=== PATIENT | female | born 1950 | race Caucasian/White ===

== ENCOUNTER → 2016-11-25 | Outpatient (CLI) | payer OTHER ==
[~2016-11-25] MED LIST: LOSA50TA6 PO; VENL150C56 PO
== END ==
LOC: C.PAPS 15:16
PROVIDERS: ATTEND Obstetrics & Gynecology
DX: Z12.4 Encounter for screening for malignant neoplasm of cervix (principal)

== ENCOUNTER → 2016-12-29 | Outpatient (CLI) | payer OTHER, BC ==
[2016-12-29 16:30] LABS: BASO % 0.2 %; BASO ABS # 0.02 K/uL (0-0.2); COMPLETE YES; EOS % 3.6 %; IG% 0.3 %; LYMPH % 26.5 %; LYMPH ABS # 2.51 K/uL (1.2-3.4); MEAN CELL VOLUME 92.2 fL (80-100); MEAN CORPUSCULAR HEMOGLOBIN 32.6 pg (25-34); MEAN CORPUSCULAR HGB CONC 35.4 g/dl (32-36); MEAN PLATELET VOLUME 9.4 fL (7.4-10.4); MONO % 9.9 %; NEUT % 59.5 %; PLATELET COUNT 226 K/uL (130-400); RED BLOOD COUNT 4.23 M/uL (4.2-5.4); WHITE BLOOD COUNT 9.48 K/uL (4.8-10.8)
== END | disposition home or self-care (01) ==
LOC: C.LAB 16:05
PROVIDERS: ATTEND Obstetrics & Gynecology
DX: N85.2 Hypertrophy of uterus (principal); R93.8 Abnormal findings on diagnostic imaging of other specified body structures

== ENCOUNTER → 2017-01-02 | Day surgery (SDC) | payer OTHER, BC ==
--- NOTE | 2016-12-24 19:15 | HISTORY & PHYSICAL EXAMINATION ---
DATE OF ADMISSION: 01/02/2017 CHIEF COMPLAINT: Thickened endometrial stripe, enlarged uterus. HISTORY OF PRESENT ILLNESS: The patient is a 66-year-old, 3, para 2, on spontaneous AB. General health is complicated by high blood pressure and elevated cholesterol. She was seen in the office for a yearly visit and found to have an enlarged uterus. A transvaginal ultrasound was done at which time she was found to have an endometrial stripe of 10-15 mm. She is presently being scheduled for an outpatient D\T\C. PAST MEDICAL HISTORY: She has 2 children in good health. ALLERGIES: No known drug allergies. PAST SURGICAL HISTORY: No previous surgery. MEDICAL HISTORY: She is on blood pressure medications and she has high cholesterol. SOCIAL HISTORY: No smoking. No alcohol intake. FAMILY HISTORY: Mom at age 72 of ovarian cancer. Father at age 68 of myocardial infarction. One brother and one sister, in good health. REVIEW OF SYSTEMS: HEAD: No symptoms of frequent or severe headaches. EYES: No symptoms of blurred vision or double vision. EARS: No symptoms of frequent ear infections or difficulty hearing. NOSE: No symptoms of frequent nosebleeds or difficulty breathing through her nose. THROAT: No symptoms of frequent severe sore throat or difficulty swallowing. RESPIRATORY SYSTEM: No history of asthma, chest pain or shortness of breath. PHYSICAL EXAMINATION: GENERAL: Well-developed, well-nourished 66-year-old white female, alert, oriented x3 and cooperative, in no acute distress, appears stated age. EYES: Conjunctivae are pink. Sclerae white. No evidence of jaundice. EARS: Had normal reflex bilaterally. NOSE: Had normal mucosa. Septum is midline. There were no polyps. THROAT: No erythema or evidence of infection. Teeth are in good state of repair. HEAD: Normocephalic, normal distribution of hair. NECK: Supple. Trachea is midline. Thyroid is not enlarged. There is no adenopathy appreciated. Both carotids are of good intensity. CHEST: Clear to auscultation and percussion. No wheezes, rales or rhonchi are appreciated. HEART: Regular rhythm. S1 and S2 are normal. BREASTS: Normal. ABDOMEN: Soft and nontender. PELVIC: Revealed atrophic vaginitis, uterus is 9-10 weeks size. There were no adnexal masses appreciated. MUSCULOSKELETAL: Revealed no calf tenderness. IMPRESSIONS OF THIS CASE: Elevated blood pressure, elevated cholesterol and enlarged uterus with an abnormally thickened endometrial stripe. SARTHAKD
[2017-01-01 14:38] VITALS: Ht 165.1 cm; Wt 88.6 kg
[~2017-01-02] VITALS: Ht 165.1 cm; Wt 88.6 kg
[~2017-01-02] MED LIST changes: +ATROPINE SULFATE 0.1 MG/ML 5ML SYR IV PRN; +DEXAMETHASONE SOD INJ 4 MG/ML VIAL ONE; +EpHEDrine SULFATE INJ 50 MG/ML AMP IV PRN; +FENTANYL CITRATE INJ 50 MCG/1 ML 2 ML VIAL IV PRN; +FENTANYL CITRATE INJ 50 MCG/1 ML 2 ML VIAL ONE; +FLUMAZENIL 0.1 MG/1 ML 10 ML VIAL IV PRN; +GLYCOPYRROLATE INJ 0.2 MG/ML VIAL ONE; +HYDROCODONE/ACETAMOPHEN 5/325MG TAB PO PRN; +IBUPROFEN 600 MG TAB PO PRN; +KETOROLAC TROMETHAMINE 15 MG/ML VIAL IV. PRN; +LABETALOL HCL IV 5 MG/ML 20ML IV ONE; +LABETALOL HCL IV 5 MG/ML 20ML IV PRN; +LACTATED RINGER'S 1000ML 1,000 ML IV SCH; +LIDOCAINE HCL 2% 2 ML VIAL (20MG/ML) ONE; +MIDAZOLAM HCL 1 MG/ML 2ML VIAL ONE; +NALOXONE HCL 0.4 MG/1 ML VIAL/CARP IV PRN; +ONDANSETRON INJ 2 MG/ML 2 ML VIAL IV PRN; +ONDANSETRON INJ 2 MG/ML 2 ML VIAL ONE; +OXYCODONE/ACETAMINOPHEN 5-325 TAB PO PRN; +PATIENT'S ALLERGY INFO NEEDS ENTERED SCH; +PROMETHAZINE HCL INJ 12.5 MG in SODIUM CHLORIDE 0.9% 50ML 50 ML IV PRN; +PROPOFOL IV EMULSION 10 MG/ML 20 ML VIAL IV ONE; +SODIUM CHLORIDE 0.9% 1000ML 1,000 ML IV SCH
--- NOTE | 2017-01-02 08:08 | History & Physical Bridge Note ---
H&P Re-Evaluation Bridge Note: I have examined the patient, reviewed the History & Physical and in the interval since the performance of the History & Physical I have noted the following changes of clinical significance: No changes noted
--- NOTE | 2017-01-02 08:44 | [facility] Post Operative Brief Note ---
Immediate Operative Summary Operative Date Jan 02, 2017. Pre-Operative Diagnosis Thickened Endometrium Post-Operative Diagnosis same Procedure(s) Performed Dilatation And Curettage Surgeon Dr. Ramiro Saavedra Hair Preparer Surgeon(s) 0 Estimated Blood Loss 5cc Findings cervical stenosis uterus sounded to 8 cm large amount of tissue obtained Specimens A. Endometrial Curettings Complication(s) None Disposition Recovery Room / PACU
--- NOTE | 2017-01-02 08:46 | Discharge Instructions-SurgCtr ---
Discharge Instructions Date of Service Jan 02, 2017. Visit Reason for Visit: Thickened Endometrium Discharge Discharge Diagnosis / Problem: thickened endometrium Discharge Goals Goal(s): Learn about illness Activity Recommendations Activity Limitations: as noted below ACTIVITY RECOMMENDATIONS: * Avoid tampons, douching, hot tubs, pools, and intercourse until bleeding has stopped. * May shower as usual. * No strenuous activity for 24-48 hours. After 24-48 hours, you may do anything you feel like doing (driving and sports are okay). SPECIAL CARE INSTRUCTIONS: Special Diet: * Mild nausea may occur in the immediate post-operative period. * Take clear liquids such as tea, cola or bouillon until all nausea has subsided; you may then resume your normal diet. Special Care: * Light bleeding and vaginal spotting can last from a few days to 3-4 weeks. Call your doctor if bleeding becomes heavier than the heaviest part of your period. * Check your temperature twice a day for one week. If it goes above 100.4 degrees Fahrenheit (38.0 Celsius), notify your doctor. * Call your doctor's office for an appointment for 6 weeks after your surgery. FOLLOW-UP VISIT: Call your doctor's office for an appointment for 6 weeks after your surgery. Anesthesia . Post Anesthesia Instructions: If you have had General Anesthesia or IV Sedation: * Do not drive today. * Resume driving when surgeon permits. * Do not make important decisions or sign legal documents today. * Call surgeon for: 1. Temperature elevations greater than 101 degrees F. 2. Uncontrollable pain. 3. Excessive bleeding. 4. Persistent nausea and vomiting. 5. Medication intolerance (nausea, vomiting or rash). * For nausea and vomiting use only clear liquids such as: tea, soda, bouillon until nausea subsides, then gradually increase diet as tolerated. * If you have any concerns or questions, call your surgeon's office. If physician is unavailable and it is an emergency, call 911 or go to the nearest emergency room. . Diet Recommendations Home Diet: resume previous diet Procedures Procedures Performed: Dilatation And Curettage Pending Studies Studies pending at discharge: no Medical Emergencies . Who to Call and When: Medical Emergencies: If at any time you feel your situation is an emergency, please call 911 immediately. . Non-Emergent Contact Non-Emergency issues call your: Impregnating Machine Operator Call Non-Emergent contact if: temperature is above 100.5 . . "Provider Documentation" section prepared by Denny Saavedra.
--- NOTE | 2017-01-02 08:54 | OPERATIVE REPORT ---
DATE OF OPERATION: 01/02/2017 INDICATIONS FOR SURGERY: Enlarged uterus, abnormally enlarged endometrial stripe to 1-1.3 cm. 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 POSTOPERATIVE DIAGNOSIS: Same. Uterus sounded to 8 cm. Pathology pending. PROCEDURE D+C SURGEON: Dr. Saavedra. ESTIMATED BLOOD LOSS: 5 mL. ANESTHESIA: General. OPERATIVE FINDINGS AND PROCEDURE: The patient was brought to the OR table, correctly identified by armband and conversation. General anesthesia was administered. Perineum and vagina were painted with Betadine paint, draped in usual sterile fashion. A metal catheter was used to empty the bladder. Careful pelvic exam under anesthesia revealed an enlarged uterus, mid position, no adnexal masses appreciated. Weighted speculum was placed in the posterior vagina. Anterior lip of the cervix grasped with single tooth tenaculum at 12 o'clock. There was a little bit of cervical stenosis and this was managed by using a stat to open up the endocervical canal. Then the uterus was sounded to 8 cm. Cervix was dilated with graduated dilators. A small curette was placed in the uterine cavity. All 4 quadrants of the uterus were thoroughly and systematically curetted. This was productive of some abnormal appearing tissue. After thorough curettage of the endometrial cavity ovum forceps was inserted into the uterine cavity, opened and closed several times, just 1 or 2 small fragments were obtained then procedure was terminated. Instruments were removed. The patient tolerated the procedure well and left the OR in good condition. I attest to the content of the Intraoperative Record and any orders documented therein. Any exceptions are noted below. MTDD
[2017-01-02 10:13] VITALS: BP 178/99; PULSE 71; TEMP 36.7; O2SAT 97
--- NOTE | 2017-01-02 10:20 | Anesthesia Progress Nt - [facility] ---
Anesthesia Post Op Note Date & Time Jan 02, 2017 at 10:19 Vital Signs Pain Intensity: 0 Vital Signs Past 12 Hours Date Time Temp Pulse Resp B/P Pulse Ox O2 Delivery O2 Flow Rate FiO2 01/02/17 10:13 36.7 71 14 178/99 97 Room Air 01/02/17 09:40 36.7 74 14 161/94 94 Room Air 01/02/17 09:25 150/96 01/02/17 09:22 80 19 01/02/17 09:22 36.4 93 Room Air 01/02/17 09:22 81 19 91 01/02/17 09:21 79 8 01/02/17 09:21 79 8 92 01/02/17 09:21 79 8 92 01/02/17 09:21 79 8 01/02/17 09:20 151/86 01/02/17 09:20 151/86 01/02/17 09:16 77 11 93 01/02/17 09:16 77 11 01/02/17 09:16 77 11 93 01/02/17 09:16 77 11 01/02/17 09:15 141/94 01/02/17 09:15 141/94 01/02/17 09:11 81 14 94 01/02/17 09:11 81 14 01/02/17 09:11 81 14 01/02/17 09:11 81 14 94 01/02/17 09:10 152/100 01/02/17 09:10 152/100 01/02/17 09:06 82 14 92 01/02/17 09:06 82 14 01/02/17 09:06 82 14 92 01/02/17 09:06 82 14 01/02/17 09:05 148/95 01/02/17 09:05 148/95 01/02/17 09:01 84 13 97 01/02/17 09:01 84 13 01/02/17 09:01 84 13 01/02/17 09:01 84 13 97 01/02/17 09:00 148/87 01/02/17 09:00 148/87 01/02/17 08:56 102 13 99 01/02/17 08:56 102 13 99 01/02/17 08:56 102 13 01/02/17 08:56 102 13 01/02/17 08:55 171/113 01/02/17 08:55 171/113 01/02/17 08:51 104 22 98 01/02/17 08:51 104 22 01/02/17 08:51 104 22 01/02/17 08:51 104 22 98 01/02/17 08:50 180/115 01/02/17 08:50 180/115 01/02/17 08:47 165/114 01/02/17 08:47 165/114 01/02/17 08:46 102 176/109 95 01/02/17 08:46 102 01/02/17 08:46 102 176/109 95 01/02/17 08:46 36.7 98 16 165/114 98 Mask 7 01/02/17 08:46 102 01/02/17 07:37 37.4 71 18 167/100 94 Room Air Notes Mental Status: alert / awake / arousable, participated in evaluation Pt Amnestic to Procedure: Yes Nausea / Vomiting: adequately controlled Pain: adequately controlled Airway Patency, RR, SpO2: stable & adequate BP & HR: stable & adequate Hydration State: stable & adequate Anesthetic Complications: no major complications apparent
== END | disposition home or self-care (01) ==
LOC: X.SURG 07:29
PROVIDERS: ATTEND Obstetrics & Gynecology
DX: N84.0 Polyp of corpus uteri (principal); N85.2 Hypertrophy of uterus; N85.8 Other specified noninflammatory disorders of uterus; N88.2 Stricture and stenosis of cervix uteri; Z80.41 Family history of malignant neoplasm of ovary; I10 Essential (primary) hypertension; E78.5 Hyperlipidemia, unspecified

== ENCOUNTER 2024-08-27 10:35 | Inpatient (IN) ==
--- OUTSIDE RECORDS SUMMARY | 2024-08-27 10:39 | External Medical Summary | Continuity of Care Document ---
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 Phone Saba Garcia Primary Care Physician [phone] Encounter [facility] [phone] Date(s): 07/28/24 - 07/28/24 [facility] [address], [address] [place] [address] [phone] Encounter Diagnosis HTN (hypertension)(Discharge Diagnosis) - 07/28/24 Memory loss(Discharge Diagnosis) - 07/28/24 Hyperlipidemia(Discharge Diagnosis) - 07/28/24 Age-associated hearing loss(Discharge Diagnosis) - 07/28/24 Benign essential tremor(Discharge Diagnosis) - 07/28/24 Hyperlipidemia, unspecified(Final) - Essential (primary) hypertension(Final) - Discharge Disposition: Home or Self Care Attending Physician: MD Garcia Amy L Allergies, Adverse Reactions, Alerts No Known Allergies Assessment and Plan Extracted from: Title:Office Visit Note Author:MD Garcia Amy L D ate:07/28/24 1.HTN (hypertension) Status : chronic, well-controlled. Data : BP readings reviewed. Goal : maintain normal BP. Plan : continue current BP med. Get electrolytes & renal function before next visit in 6 months. 2.Memory loss STATUS: Chronic stable. DATA: hx reviewed. GOAL: Maintain cognitivestability. PLAN: fortunately, noapparentprogression.Cont donepezil&current monitoring. 3.Hyperlipidemia STATUS : chronic, stable. DATA : diet & exercise reviewed. GOAL: improve metabolic profile. PLAN : continue Simvastatin&to monitor lifestyle. Get lipids & LFTs in 6 months. 4.Age-associated hearing loss STATUS: Chronic, improved. DATA: hxreviewed. GOAL: Maintain/restorehearing. PLAN: she isnotentirely pleasedwith herhearingaids,however,they havehelpedwithherhearingsomewhat. Of note, she has been more agreeable to wearing them consistently. 5.Benign essential tremor No progression. Return in 6 months for CPE. Time:Total time spent with this patient on day of evaluation including chart review, ordering, education and coordination of care elements: _26 minutes Immunizations Given and Recorded Vaccine Date Status Refusal Reason influenza virus vaccine, inactivated 07/16/23 Give n influenza virus vaccine, inactivated 07/05/22 Give n influenza virus vaccine, inactivated 1 09/27/14 Re corded SARS-CoV-2 (COVID-19) mRNA BNT-162b2 vax 08/18/21 Recorded SARS-CoV-2 (COVID-19) mRNA BNT-162b2 vax 2 11/29/20 Recorded SARS-CoV-2 (COVID-19) mRNA BNT-162b2 vax 3 11/08/20 Recorded pneumococcal 23-valent vaccine 04/19/20 Given pneumococcal 13-valent vaccine 03/04/18 Given 1Result Comment: [09/20/2015 Uncharted] Error 2Result Comment: 2022-07-05: Historical information-source unspecified 3Result Comment: 2022-07-05: Historical information-source unspecified Medications donepezil 5 mg oral tablet Start: 05/09/21 12:51:00 PM EDT, 1 tab, PO, Daily Start Date: 05/09/21 Status: Ordered losartan 100 mg oral tablet Start: 02/25/23 8:46:00 AM EDT, See Instructions, Disp# 90 tab, Refills: 1, TAKE 1 TABLET BY MOUTH EVERY DAY, Pharmacy: [id number] Start Date: 02/25/23 Status: Ordered simvastatin 20 mg oral tablet Start: 02/13/23 7:09:00 PM EDT, 1 tab, PO, qhs, Disp# 90 tab, Refills: 3, Pharmacy: [facility]/pharmacy #[id number] Start Date: 02/13/23 Status: Ordered venlafaxine 150 mg oral capsule, extended release Start: 02/05/23 9:48:00 PM EDT, See Instructions, Disp# 90 cap, Refills: 1, TAKE 1 CAPSULE BY MOUTH EVERY DAY, Pharmacy: [id number] Start Date: 02/05/23 Status: Ordered Voltaren 1% topical gel Start: 07/07/18 9:13:00 AM EDT, 1 appl, topical, qid, Disp# 100 g, Refills: 5, not to exceed 16 grams/day/single joint of lower extremities not to exceed 32 grams/day, PRN: Pain, Pharmacy: [facility]/pharmacy #[id number] Start Date: 07/07/18 Stop Date: 01/03/19 Status: Ordered Mental Status 07/28/24 Barriers to Learning one year None evide nt Mandatory Health Literacy Documentation Yes Health Literacy Communication Barriers N ever Primary Language [place] Problem List Condition Confirmation Course Effective Dates Status H ealth Status Informant Memory loss Confirmed Active Benign paroxysmal vertigo Confirmed Active Bilateral hearing loss Confirmed Active Breast mass, right Confirmed Active Encounter for screening mammogram for breast cancer Confirmed Active Pes anserine bursitis Confirmed Active Benign essential tremor Confirmed Active Fluttering heart Confirmed Active Right hip pain Confirmed Active Hyperlipidemia Confirmed Active HTN (hypertension) Confirmed Active Acute pain of right knee Confirmed Active Low back pain Confirmed Active Bilateral low back pain Confirmed Active Disturbance of memory Confirmed Active Anxiety and depression Confirmed Active Radiculopathy Confirmed Active Right knee pain Confirmed Active Annual physical exam Confirmed Active Breast cancer screening by mammogram Confirmed Active Age-associated hearing loss Confirmed Active Acute pain of left shoulder Confirmed Active Urgency of urination Confirmed Active Weight disorder Confirmed Active Diagnosis Diagnosis Type Effective Dates Health Status Clinical Service Informant Memory loss Discharge Diagnosis 07/28/24 Non-Specified Hyperlipidemia Discharge Diagnosis 07/28/24 Non-Specified Age-associated hearing loss Discharge Diagnosis 07/28/24 Non-Specified Benign essential tremor Discharge Diagnosis 07/28/24 Non-Specified HTN (hypertension) Discharge Diagnosis 07/28/24 Non-Specified Procedures Procedure Date Related Diagnosis Body Site Status Mammogram 1 12/03/23 Completed Ultrasound guided biopsy 2, 3 12/25/22 Completed Ultrasound of right breast 4 12/18/22 Completed Mammogram 5 11/27/22 Completed Mammogram 6 05/23/21 Completed MRI of brain without contrast 7 12/23/19 Completed MRI of head 8 04/28/19 Completed Mammogram 9 04/13/19 Completed Knee X-ray 10 06/22/18 Completed Ultrasound of kidney 11 02/13/18 C ompleted Colonoscopy 12 07/23/17 Completed D&C - Dilatation and curettage 13, 14 01/02/17 Completed Hysterectomy 15 01/09/12 Completed Papanicolaou smear 16 02/12/11 Com pleted Colonoscopy 17 04/13/01 Completed Breast cyst Completed Colonoscopy normal Comple jose Excision of vaginal cyst Completed 1No mammographic evidence of malignancy. 2Status post right breast ultrasound guided core biopsy of a 4.6mm oval mixed echogenicity microlobulated mass in the 2:00 right breast, with ribbon shaped biopsy marker placed at the site. The patient will receive notificaiton of the biopsy results from her referring provider. 3AMENDMENT 01/01/23---Pathology results from ultrasound guided core biopsy of a 4.6mm oval microlobulated mass in the 2:00 right breast yielded: inflamed fibrocystic change. A minority of the specimen shows fibrocystic change with a chronic inflammatory infiltrate. The inflammatory infiltrate consistsprimarily of lymphocytes and an unusually high number of eosinophils. The inflammatory pattern is nonspecific. [facility]: ACR BI-RADS CATEGORY 4: SUSPICIOUS 1. Right breast ultrasound-guided core biopsy is recommended for a 4.6 mm oval mixed echogenicity microlobulated mass in the 2:00 right breaset, correlating with a newly visualized mammographic mass 5IMPRESSION: ACR BI-RADS CATEGORY needs additional imaging -evaluation righht breast mass . patient will be notified 6IMPRESSION: ACR BI-RADS CATEGORY 2: BENIGN, ULTRASOUND ACR BI-RADS CATEGORY 2: BENIGN 1. There is no mammographic evidence of malignancy in the breasts. 2. No new suspicious mammographic or targeted sonographic abnormality or evidence of malignancy in the area of palpable concern pointed out by patient, within the right upper outer quadrant. Continued clinical follow-up is therefore recommended, as biopsy of a clinically suspicious mass should not be precluded by negative imaging. 3. Otherwise, recommned routine screening mammography in 1 year(April 2022). 7[facility] Impression: 1. No imaging findings to suggest an acute intracranial abnormality, including no acute cerebral ischemia, no gross acute intracranial hemorrhage, and no intracranial space-occupying mass lesion 2. Global cerebral volume loss and moderate burden of patchy nonspecific T2 FLAIR signal hyperintensity within the bilateral cerebral white matter, which in the appropriate clinical setting may reflect sequelae of chronic small vessel ischemic disease amother other etiologies. Portion of the appearance could be related to perivascular spaces 8[facility] Impression: 1. No acute intracranial abnormality 2. Normal appearance of the bilateral internal auditory canals, VII and VIII cranial nerves 3. No abnormal enhancement 4. Moderate T2/FLAIR hyperintensities about the white matter are suggestive of chronic microvascular ischemic disease 9Normal study. 10No evidence of acute osseous abnormality or significant degenerative change. 111. Normal renal ultrasound. No obstruction. 12redundant colon, minor int/ext. hemorrhoids; next scope in 10 yrs 131. Atrophic endometrium is seen. 2. Multiple endometrial polyps are seen. 3. Hyperplasia and carcinoma are not seen 14Enlarged uterus, abnormally enlarged endometrial stripe to 1-1.3cm. suspected endometrial carcinoma. 15[facility] 16Normal. 17Normal . Results Laboratory List Name Date Comprehensive Metabolic Panel (COMP META B PANEL) 07/28/24 Lipid Profile (LIPOPROTEINS) 07/28/24 Most recent to oldest [Reference Range]: 1 eGFR CKD-EPI [>60 mL/min/1.73 m2] 51 mL/ min/1.73 m2 1 *LOW* (07/28/24 11:02 AM) Non-HDL 190 mg/dL 2 (07/28/24 11:02 AM) Estimated CrCl 43.41 mL/min (07/28/24 11:51 AM) Anion Gap [5-14 mmol/L] 5 mmol/L (07/28/24 11:02 AM) Alb [3.5-5.0 g/dL] 4.2 g/dL (07/28/24 11:02 AM) Alk Phos [38-126 unit/L] 108 unit/L (07/28/24 11:02 AM) ALT [<35 unit/L] 18 unit/L (07/28/24 11:02 AM) AST [15-46 unit/L] 29 unit/L (07/28/24 11:02 AM) BUN [7-20 mg/dL] 18 mg/dL (07/28/24 11:02 AM) Ca [8.4-10.2 mg/dL] 9.2 mg/dL (07/28/24 11:02 AM) Chol/HDL 4 (07/28/24 11:02 AM) Chol [125-200 mg/dL] 254 mg/dL *HI* (07/28/24 11:02 AM) Cl- [96-107 mmol/L] 105 mmol/L (07/28/24 11:02 AM) HCO3 [22-30 mmol/L] 28 mmol/L (07/28/24 11:02 AM) Cret [0.60-1.00 mg/dL] 1.12 mg/dL *HI* (07/28/24 11:02 AM) Glu [74-106 mg/dL] 95 mg/dL (07/28/24:02 AM) HDL [>35 mg/dL] 64 mg/dL (07/28/24 11:02 AM) K [3.5-5.1 mmol/L] 4.2 mmol/L (07/28/24 11:02 AM) LDL Chol, Calculated [50-130 mg/dL] 163 mg/dL *HI* (07/28/24 11:02 AM) Na [137-145 mmol/L] 138 mmol/L (07/28/24 11:02 AM) T Bili [0.2-1.3 mg/dL] 0.8 mg/dL (07/28/24 11:02 AM) Prot [6.3-8.2 g/dL] 7.4 g/dL (07/28/24 11:02 AM) TG [<200 mg/dL] 137 mg/dL (07/28/24 11:02 AM) 1Result Comment: Testing Performed By: Dept of Pathology [facility] Anthony Lyons, [address] [place] [address] 2Result Comment: Testing Performed By: Dept of Pathology [facility] Anthony Lyons, [address] [place] [address] Vital Signs Most recent to oldest [Reference Range]: 1 Patient Weight 73.7 kg (07/28/24 10:34 AM) Heart Rate 68 bpm (07/28/24 10:34 AM) Respiratory Rate 16 br/min (07/28/24 10:34 AM) Blood Pressure 132/80mmHg (07/28/24 10:34 AM) Cuff Pulse Pressure 52 mmHg (07/28/24 10:34 AM) BP Location # 1 Left Arm (07/28/24 10:34 AM) Social History Social History Type Response Smoking Status Never smoked cigaret lawrence Sex Female Sex Representation Female (finding) FCM Outpt Note * MD Jose, Saba Renee: PERFORM Event Display: FCM Outpt Note Authored Date: [id number] Chief Complaint follow up, no concerns History of Present Illness * This patient is being followed longitudinally for chronic serious medical problems by Dr. Saba Garcia. Their most recent visitwith Dr. Garcia:01/21/24. Here for recheckoffollowing concerns : 1)Memory loss - she feels that she's "holding her own." Nothing is any worse. 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 2) HTN - she feels that her BP is under good control. No headaches, vision change or dizziness. 3) Hyperlipidemia - she thinks that her diet is generally prettygood. However, she admits that she has been eating pub fries more often than she used to. 4) Hearing loss - she has been wearing her hearing aids consistently, even though she doesn't like them. Review of Systems Review of Systems- Constitutional: no fatigue or changes in weight. HEENT: no vision changes, or sinus congestion. Respiratory: no cough, SOB, or wheezing. Cardiac: no chest pain, singlemomentarypalpitation last week, no recurrence since then, nopedal edema. GI: no abdominal pain, vomiting or change in bowel habits. : no dysuria. Neurologic: no headaches. Musculoskeletal: No joint pains. Physical Exam Vitals & Measurements HR:68(Monitored) RR:16 BP:132/80 SpO2:96% WT:73.7kg WT:73.700kg(Dosing) PHQ2 Data(Data Documented on:07/28/2024 10:34) Emotional health assessment NEGATIVE PE : Alert, in NAD. HEENT - PERRL. TM's - normal. Nares - clear. Oropharynx - normal. Neck - supple, without thyromegaly or lymphadenopathy. Lungs - clear, with good breath sounds bilaterally. Heart - RRR without murmur. No pedal edema. Abdomen - +BS, soft, NT without HSM or mass. Neuro - alert & oriented, speech & cognition normal. Skin - warm & dry. Psych - affect appropriate. Assessment/Plan 1.HTN (hypertension) Status : chronic, well-controlled. Data : BP readings reviewed. Goal : maintain normal BP. Plan : continue current BP med. Get electrolytes & renal function before next visit in 6 months. 2.Memory loss STATUS: Chronic stable. DATA: hx reviewed. GOAL: Maintain cognitivestability. PLAN: fortunately, noapparentprogression.Cont donepezil&current monitoring. 3.Hyperlipidemia STATUS : chronic, stable. DATA : diet & exercise reviewed. GOAL: improve metabolic profile. PLAN : continue Simvastatin&to monitor lifestyle. Get lipids & LFTs in 6 months. 4.Age-associated hearing loss STATUS: Chronic, improved. DATA: hxreviewed. GOAL: Maintain/restorehearing. PLAN: she isnotentirely pleasedwith herhearingaids,however,they havehelpedwithherhearingsomewhat. Of note, she has been more agreeable to wearing them consistently. 5.Benign essential tremor No progression. Return in 6 months for CPE. Time:Total time spent with this patient on day of evaluation including chart review, ordering, education and coordination of care elements: _26 minutes Problem List/Past Medical History Ongoing Acute pain of left shoulder Acute pain of right knee Age-associated hearing loss Annual physical exam Anxiety and depression Benign essential tremor Benign paroxysmal vertigo Bilateral hearing loss Bilateral low back pain Breast cancer screening by mammogram Breast mass, right Disturbance of memory Encounter for screening mammogram for breast cancer Fluttering heart HTN (hypertension) Hyperlipidemia Low back pain Memory loss Pes anserine bursitis Radiculopathy Right hip pain Right knee pain Urgency of urination Weight disorder Resolved Sacroiliitis Procedure/Surgical History Mammogram| Service Date: 12/03/2023Ultrasound guided biopsy| Service Date: 12/25/2022Ultrasound of right breast| Service Date: 12/18/2022Mammogram| Service Date: 11/27/2022Mammogram| Service Date: 05/23/2021MRI of brain without contrast| Service Date: 12/23/2019MRI of head| Service Date: 04/28/2019Mammogram| Service Date: 04/13/2019Knee X-ray| Service Date: 06/22/2018Ultrasound of kidney| Service Date: 02/13/2018 D&C - Dilatation and curettage| Service Date: 01/02/2017Hysterectomy| Service Date: 01/09/2012Papanicolaou smear| Service Date: 02/12/2011 Colonoscopy| Service Date: 04/13/2001Colonoscopy normalExcision of vaginal cystBreast cyst Medications diclofenac topical(Voltaren 1% topical gel), 1 appl, topical, qid, PRN, 5 refills donepezil(donepezil 5 mg oral tablet), 5 mg= 1 tab, PO, Daily losartan(losartan 100 mg oral tablet), See Instructions simvastatin(simvastatin 20 mg oral tablet), 20 mg= 1 tab, PO, qhs, 3 refills venlafaxine(venlafaxine 150 mg oral capsule, extended release), See Instructions Allergies NKA Social History Smoking Status Never smoked cigarettes Alcohol Frequency:1-2 times per year Exercise Exercise type:Walking Tobacco Use:Never smoker Family History Cancer: Mother. Cardiovascular disease: Sister and Brother. Heart attack: Mother and Father. Type II diabetes mellitus: Brother. Health Status Family Member(s) Immunizations Vaccine Date Status influenza virus vaccine, inactivated 07/16/2023 Given influenza virus vaccine, inactivated 07/05/2022 Given SARS-CoV-2 (COVID-19) mRNA BNT-162b2 vax 08/18/2021 Recorded SARS-CoV-2 (COVID-19) mRNA BNT-162b2 vax 11/29/2020 Recorded Comments : 2022-07-05: Historical information-source unspecified SARS-CoV-2 (COVID-19) mRNA BNT-162b2 vax 11/08/2020 Recorded Comments : 2022-07-05: Historical information-source unspecified pneumococcal 23-valent vaccine 04/19/2020 Given pneumococcal 13-valent vaccine - Not Given Comments : Already received vaccine pneumococcal 13-valent vaccine - Not Given Comments : Already received vaccine pneumococcal 13-valent vaccine 03/04/2018 Given Recommendations Health Maintenance Pending(in the next year) OverDue Adult Influenza Vaccine due03/28/24and every 1year Due Adult COVID-19 Vaccination due07/28/24Unknown Frequency Adult Social Determinants of Health Screening due07/28/24Unknown Frequency Adult Tdap/Td Vaccine due07/28/24Unknown Frequency Body Mass Index due07/28/24Unknown Frequency Hepatitis C Screening due07/28/24One-time only Medicare Annual Wellness Visit due07/28/24and every 1year Osteoporosis Screening due07/28/24One-time only Shingles Vaccine due07/28/24One-time only Satisfied(in the past 1 year) Satisfied Lipid Screening on07/28/24.Satisfied by Contributor_system, [employer] Electronic Signature on File Electronically Reviewed/Signed by: Saba Garcia MD Author Signature Dt/Tm:07/28/2024 11:57 AM Network Admin [facility] [address] [place] [address] [facility] Patient Care team information Care Team Personnel Name: MD Jose, Saba Renee Position: Physician - Family Med Member Role: Primary Care Provider Address: [address] [place] [address], [place] [address] [place] Care Team Related Persons Name: ROSA KEEEN
[2024-08-27 11:14] LABS: Hematocrit (blood only) 42.8 % (37.0-47.0); Hemoglobin 14.8 g/dl (12.0-16.0); Mean Corpuscular Hemoglobin 31.6 pg (25.0-34.0); Mean Corpuscular Hgb Conc 34.6 g/dL (32.0-36.0); Mean Corpuscular Volume 91.3 fL (80.0-100.0); Mean Platelet Volume 9.4 fL (9.4-12.4); Platelet Count 191 K/uL (130-400); RDW Coefficient of Variation 11.9 % (11.5-14.5); RDW Standard Deviation 39.8 fL (36.4-46.3); Red Blood Count 4.69 M/uL (4.20-5.40); White Blood Count 7.41 K/ul (4.8-10.8)
[2024-08-27 11:28] LABS: Albumin Globulin Ratio 1.6 (0.9-2); Albumin Level 4.2 gm/dl (3.4-5.0); BUN Creatinine Ratio 22.4 (10-20); Bilirubin,Total 0.8 mg/dl (0.2-1.0); Calcium 9.2 mg/dl (8.6-10.3); Creatinine Clr Calc Pharmacy 45.5 ml/min; Globulin 2.7 gm/dl (2.5-4.0); Magnesium 2.2 mg/dl (1.7-2.4); Potassium 3.6 mmol/L (3.5-5.1); Total Protein 6.9 gm/dl (6.0-8.3)
[2024-08-27 11:44] LABS: Partial Thromboplastin Time 26 Seconds (21-31); Prothrombin Time 10.9 Seconds (9.0-12.0)
[2024-08-27 11:57] LABS: Basophils # (auto) 0.03 K/uL (0.00-0.20); Basophils % (auto) 0.4 %; Eosinophils # (auto) 0.06 K/uL (0.00-0.50); Eosinophils % (auto) 0.8 %; Immature Granulocytes # (auto) 0.02 K/uL (0.01-0.20); Immature Granulocytes % (auto) 0.3 %; Lymphocytes # (auto) 1.45 K/uL (1.20-3.40); Lymphocytes % (auto) 19.2 %; Monocytes # (auto) 0.53 K/uL (0.11-0.59); Neutrophils # (auto) 5.47 K/uL (1.40-6.50); Neutrophils % (auto) 72.3 %
--- NOTE | 2024-08-27 11:59 | CT Scan Report ---
CT OF THE HEAD WITHOUT CONTRAST CLINICAL HISTORY: neuro deficit, acute stroke suspected. Slurred speech. COMPARISON STUDY: MRI of the brain April 28, 2019. TECHNIQUE: Helical axial images of the head were obtained without IV contrast. Automated exposure con trol was utilized for the study. A dose lowering technique was utilized adhering to the principles o f ALARA. FINDINGS: No acute intracranial hemorrhage, midline shift or mass effect is present. The ventricular system is unremarkable. Basal cisterns are patent. There are no extra axial collections. A 1.6 x 0.8 cm hypodense focus within the superior right cerebellar hemisphere on image 10 of 28 is new since MRI of April 28, 2019. White matter hypodense foci suggest small vessel disease. There is a 7 mm hypointe nse focus within the left midbrain on image 10. IMPRESSION: 1. No acute intracranial hemorrhage. No mass effect. 2. 1.6 x 0.8 cm hypodense focus within the superior right cerebellar hemisphere which is new since pr evious MRI. This suggests a subacute to acute infarct. 3. 7 mm hypodense focus within the left midbrain. This is likely artifactual although a small infarct could appear similar. 4. White matter hypodense foci suggestive of small vessel disease. ACT 112: Negative or not required by law. Electronically signed by: Pepito Fox M.D. 08/27/2024 11:57 AM
--- NOTE | 2024-08-27 12:04 | CT Scan Report ---
CT ANGIOGRAPHY OF THE NECK WITH CONTRAST CLINICAL HISTORY: neuro deficit, acute stroke suspected COMPARISON STUDY: No previous studies for comparison. Technique: CT angiography of the carotid and vertebral arteries was obtained using Optiray and 3D rec onstruction on an independent workstation. NASCET criteria was utilized. Automated exposure control was utilized for the study. A dose lowering technique was utilized adhering to the principles of ALA RA. CT DOSE: 875.81 mGy.cm Findings: Visualized portions of the lung apices are unremarkable. There is no cervical adenopathy. N o cervical spine fracture. There is moderate calcified atherosclerotic plaque within the proximal wes ateral internal carotid arteries without significant stenosis. There is no aneurysm or dissection wit hin the neck. The vertebral arteries are patent. IMPRESSION: 1. Moderate atherosclerotic plaque within the proximal bilateral internal carotid arteries without si gnificant stenosis. 2. No stenosis or dissection within the bilateral common carotid, cervical internal carotid or verteb ral arteries. ACT 112: Negative or not required by law. Electronically signed by: Pepito Fox M.D. 08/27/2024 12:01 PM
--- NOTE | 2024-08-27 12:08 | CT Scan Report ---
CTA ANGIOGRAPHY OF THE HEAD CLINICAL HISTORY: neuro deficit, acute stroke suspected COMPARISON STUDY: MRI of the brain April 28, 2019. TECHNIQUE: Helical axial images of the head were obtained following uneventful intravenous administr ation of 121 cc of Optiray. Sagittal and coronal reconstructions were viewed as well as maximal inten sity projections on an independent 3-D workstation. Automated exposure control was utilized for the study. A dose lowering technique was utilized adhering to the principles of ALARA. FINDINGS: The bilateral M1, M2, A1 and A2 segments are patent. No vascular occlusion is present. Ther e is minimal plaque within the cavernous carotids without stenosis. The posterior circulation is inta ct. There is no intracranial aneurysm. Please note that the head CT will be reported separately. A sm all hypodense focus within the superior right cerebellar hemisphere is better depicted on that exam. IMPRESSION: No large vessel occlusion. No intracranial aneurysm. ACT 112: Negative or not required by law. Electronically signed by: Pepito Fox M.D. 08/27/2024 12:05 PM
[2024-08-27 12:13] LABS: Troponin I High Sensitivity 6.1 pg/ml (0-14)
--- NOTE | 2024-08-27 12:37 | History & Physical Report ---
Date of Service August 27, 2024 Assessment & Plan (1) TIA (transient ischemic attack): Plan: Presenting w/ dysarthria and difficulty finding words x 3-4 days, seems to worsen at night but also ? more pronounced when patient does not have hearing aids in; No neurological deficits on exam- mild dysarthria and prolonged time finding words but at baseline per son w/ exception of slurred speech; almost sounds obstructive in nature but ENT exam WNL at time of admission and no obstructive symptoms per patient; Neuro exam WNL - Admit med tele - Telestroke not consulted at this time - Neurochecks + NIHSS - CT head- 1.6 x 0.8 centimeters hypodense focus within the superior right cerebellar hemisphere new since previous MRI (02/14/2020), suggestive of subacute to acute infarct, 7 mm hypodense focus in the left midbrain, likely artifactual although small infarcts appear similar - CTA head/neck without large vessel occlusion or intracranial aneurysm, moderate atherosclerotic plaque within the proximal bilateral internal carotid arteries without significant stenosis - 2D Echo Bubble pending - A1c pending - Lipids in EMR from 2019- cholesterol 235, LDL 143, HDL 65, triglycerides 135 - On simvastatin 20 mg-> pending repeat lipid panel but will adjust statin therapy to Atorvastatin 40mg daily - Troponin 6.1; no chest pain - EKG sinus bradycardia rate around 55 bpm - TSH pending - DAPT started - ASA + Plavix started 08/27, continue - MRI features are in keeping with senile involuntary changes advanced microvascular angiopathic changes acute lacunar infarcts in the right medial cerebellum extending into superior cerebellar peduncle, no intracranial bleed - Neurology consulted Appreciate neurology input + recs (2) Mixed Alzheimer's and vascular dementia: Plan: Mental status harris, patient is at baseline per son; Follows with Dr. Resendiz, most recent visit 06/09/24 - Donepezil 5 mg daily Plan HTN- Losartan 100mg Mood- Venlafaxine 150mg Dispo: Admit Diet: Regular VTE Prophylaxis: Starting DAPT Code: Full Admission and Anticipated Discharge Date Admission Date: 08/27/2024 History of Present Illness Chief Complaint: Slurred speech Primary Care Provider: Saba Garcia MD 73-year-old female presenting from outpatient office for difficulties with speech x 1 week. ED course: CBC WNL, PT/INR WNL, CMP grossly WNL with exception of chloride 108, BUN 24, BUN/creatinine ratio 22.4; pending troponin; CT head without acute intracranial hemorrhage or mass effect, 1.6 x 0.8 centimeters hypodense focus within the superior right cerebellar hemisphere new since previous admission, suggestive of subacute to acute infarct, 7 mm hypodense focus in the left midbrain, likely artifactual although small effects appear similar, white matter hypodense foci suggestive of small vessel disease; head CTA no large vessel occlusion, no intracranial aneurysm; neck CTA moderate atherosclerotic plaque within the proximal bilateral internal carotid arteries without significant stenosis, no stenosis or dissection within the bilateral common carotid, cervical intracranial, or vertebral arteries; EKG appearing sinus bradycardia rate under 60 bpm, QTc 399. Patient 73-year-old female with PMHx Alzheimer's, HTN, and hypercholesterolemia presenting for slurred speech since the Friday HEDIS ANALYST. Patient's son is present in room at time of visit and helps her provide history. 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 3 days HEDIS ANALYST the patient continued to have slurring of speech but only with certain words, and seem to be having slight difficulty finding words. 1 day HEDIS ANALYST slurred speech continued at the same severity, only presenting with certain words, and seem to worsened later in the night. Patient son is unsure if the slurring of speech is not partially impacted by the patient not wearing her hearing aids. Patient states that she does not feel that her words are not slurred but things feel "different" although the patient is unable to further explain what she means by this. The patient's son states that she appears to be at baseline neurologically. Appears as though she has some confusion in regards to having to think about where she is going or take a little bit of time to think of what she is going to say. This has been ongoing times weeks. Not having sore throat, nasal congestion, or other URI symptoms. She is denying any other additional symptoms to include weakness, numbness/tingling, headache, or vision changes. Denies chest pain, shortness of breath, abdominal pain, N/V/D/C, paresthesias, or LUTS. Believes she took most of her a.m. medications, but is not sure. Please see Dr. Wiggins's attestation for adjustments/additions to treatment plan. Allergies Allergy/AdvReac Type Severity Reaction Status Date / Time No Known Allergies Allergy Verified 06/09/24 10:55 Home Medications Medication Instructions Recorded Confirmed Type losartan 100 mg tablet 100 mg PO DAILY 02/29/20 08/27/24 History venlafaxine 150 mg tablet,extended 150 mg PO DAILY 02/29/20 08/27/24 History release 24 hr simvastatin 20 mg tablet 20 mg PO QPM 06/11/23 08/27/24 History diclofenac sodium 1 % topical gel 2 g topical QID PRN Pain 08/27/24 08/27/24 History donepezil 5 mg tablet 5 mg PO DAILY 08/27/24 08/27/24 History Past Med/Surg History Problem List (Updated 08/28/24 @ 10:42 by Gerard Resendiz MD) Cerebellar stroke TIA (transient ischemic attack) Mixed Alzheimer's and vascular dementia Alzheimer disease Cerebrovascular disease H/O concussion Mild cognitive impairment Vertigo Hypercholesteremia (Acute) Hypertension (Acute) SNHL (sensorineural hearing loss) (Acute) Surgical History S/P breast biopsy Family History Father Hypertension Mother Oral cancer Social History Smoking Status: Never smoker Hx Alcohol Use: No Hx Substance Use: No Preferred Language: Marshallese Communication Ability: Effective Roll Dough Divider Required: No Beliefs That Will Affect Care: None marital status: Current Living Situation: Alone Other Information That Helps Us Care for You: No Feels Safe at Home: Yes Safety Concerns: Feels Safe At This Time Assistive Devices: Glasses and Hearing Aid - Bilateral Review of Systems Review of Systems: All systems reviewed & are unremarkable except as noted in Subjective Physical Exam Physical Exam: General: No acute distress Skin: Warm and dry Head: Normocephalic, atraumatic Eyes: PERRL, conjunctivae clear, sclera non-icteric; EOM intact ENT: External ear and ear canal without swelling; nose atraumatic; good dentition, tongue normal appearance, pharynx normal without tonsillar swelling or exudate; voice quality almost sounding as if obstructed, but throat w/o edema and nose w/o obstruction Neck: Supple, no LAD Cardio: Bradycardic, regular rhythm, no M/G/R, S1 and S2 normal Resp: No respiratory distress, Lungs CTA in all lobes bilaterally, no wheezes, rales, or rhonchi Abdomen: Soft, symmetric, nontender; No masses or hepatosplenomegaly; Bowel sounds normoactive MSK: No deformities, full ROM throughout; pulses palpable and equal; no edema. Neuro: Awake, alert - States year "2013", president is "not Lopes, that other one," then states "trump", able to recall birthday and last name - At baseline per son II- PERRL, no VF deficits III, IV, - EOMs intact, no deviation, no nystagmus V- Normal sensation in all locations VII- No asymmetry, no nasolabial fold flattening VIII- Normal hearing to speech at patient's baseline (not wearing hearing aids) IX, X- Normal palatal elevation, no ulnar deviation XI- 5/5 head turn + shoulder shrug bilaterally XII- Midline tongue protrusion Motor: 4/5 strength throughout BUE/BLE Sensory: Normal sensation throughout, no hemineglect, Romberg absent Coordination: Normal [id number], no tremor Gait: Unable to asses; no complaints Psych: Appropriate mood and affect; good judgement and insight. Patient's son is present in room at time of visit Results & Data Results & Data Vital Signs (Past 12 Hours) Vital Signs Temp Pulse Pulse Resp BP BP Pulse Ox 08/27/24 12:31 50 L 08/27/24 12:18 72 16 156/91 H 95 08/27/24 11:06 63 17 97 08/27/24 11:04 98 08/27/24 11:04 98 08/27/24 11:02 158/91 H 08/27/24 10:42 36.4 C L 60 18 177/81 H 98 O2 Del Method 08/27/24 12:31 08/27/24 12:18 Room Air 08/27/24 11:06 08/27/24 11:04 Room Air 08/27/24 11:04 Room Air 08/27/24 11:02 08/27/24 10:42 Room Air Laboratory Results 08/27/24 10:55 WBC 7.41 RBC 4.69 Hgb 14.8 Hct 42.8 MCV 91.3 MCH 31.6 MCHC 34.6 RDW Std Deviation 39.8 RDW Coeff of Barbi 11.9 Plt Count 191 MPV 9.4 Immature Gran % (Auto) 0.3 Neut % (Auto) 72.3 Lymph % (Auto) 19.2 Hidalgo % (Auto) 7.0 Eos % (Auto) 0.8 Baso % (Auto) 0.4 Neut # (Auto) 5.47 Lymph # (Auto) 1.45 Hidalgo # (Auto) 0.53 Eos # (Auto) 0.06 Baso # (Auto) 0.03 Immature Gran # (Auto) 0.02 PT 10.9 INR 1.0 APTT 26 PTT Ratio 1.0 Sodium 142 Potassium 3.6 Chloride 108 H Carbon Dioxide 28 Anion Gap 6 BUN 24 H Creatinine 1.07 Est Cr Clr Drug Dosing 45.5 eGFR 54.17 BUN/Creatinine Ratio 22.4 H Glucose 93 Calcium 9.2 Magnesium 2.2 Total Bilirubin 0.8 AST 21 ALT 14 Alkaline Phosphatase 100 Troponin I High Sens 6.1 Total Protein 6.9 Albumin 4.2 Globulin 2.7 Albumin/Globulin Ratio 1.[address] 08/27/24 11:13 CT OF THE HEAD WITHOUT CONTRAST CLINICAL HISTORY: neuro deficit, acute stroke suspected. Slurred speech. COMPARISON STUDY: MRI of the brain April 28, 2019. TECHNIQUE: Helical axial images of the head were obtained without IV contrast. Automated exposure control was utilized for the study. A dose lowering technique was utilized adhering to the principles of ALARA. FINDINGS: No acute intracranial hemorrhage, midline shift or mass effect is present. The ventricular system is unremarkable. Basal cisterns are patent. Ther e are no extra axial collections. A 1.6 x 0.8 cm hypodense focus within the superior right cerebellar hemisphere on image 10 of is new since MRI of April 28, 2019. White matter hypodense foci suggest small vessel disease. There is a 7 mm hypointense focus within the left midbrain on image 10. IMPRESSION: 1. No acute intracranial hemorrhage. No mass effect. 2. 1.6 x 0.8 cm hypodense focus within the superior right cerebellar hemisphere which is new since previous MRI. This suggests a subacute to acute infarct. 3. 7 mm hypodense focus within the left midbrain. This is likely artifactual although a small infarct could appear similar. 4. White matter hypodense foci suggestive of small vessel disease. ACT 112: Negative or not required by law. Electronically signed by: Pepito Fox M.D. 08/27/2024 11:57 AM Head CTA 08/27/24 11:13 CTA ANGIOGRAPHY OF THE HEAD CLINICAL HISTORY: neuro deficit, acute stroke suspected COMPARISON STUDY: MRI of the brain April 28, 2019. TECHNIQUE: Helical axial images of the head were obtained following uneventful intravenous administration of 121 cc of Optiray. Sagittal and coronal reconstructions were viewed as well as maximal intensity projections on an independent 3-D workstation. Automated exposure control was utilized for the study. A dose lowering technique was utilized adhering to the principles of ALARA. FINDINGS: The bilateral M1, M2, A1 and A2 segments are patent. No vascular occlusion is present. There is minimal plaque within the cavernous carotids without stenosis. The posterior circulation is intact. There is no intracranial aneurysm. Please note that the head CT will be reported separately. A small hypodense focus within the superior right cerebellar hemisphere is better depicted on that exam. IMPRESSION: No large vessel occlusion. No intracranial aneurysm. ACT 112: Negative or not required by law. Electronically signed by: Pepito Fox M.D. 08/27/2024 12:05 PM Neck CTA 08/27/24 11:13 CT ANGIOGRAPHY OF THE NECK WITH CONTRAST CLINICAL HISTORY: neuro deficit, acute stroke suspected COMPARISON STUDY: No previous studies for comparison. Technique: CT angiography of the carotid and vertebral arteries was obtained using Optiray and 3D reconstruction on an independent workstation. NASCET criteria was utilized. Automated exposure control was utilized for the study. A dose lowering technique was utilized adhering to the principles of ALARA. CT DOSE: 875.81 mGy.cm Findings: Visualized portions of the lung apices are unremarkable. There is no cervical adenopathy. No cervical spine fracture. There is moderate calcified atherosclerotic plaque within the proximal bilateral internal carotid arteries w ithout significant stenosis. There is no aneurysm or dissection within the neck. The vertebral arteries are patent. IMPRESSION: 1. Moderate atherosclerotic plaque within the proximal bilateral internal carotid arteries without significant stenosis. 2. No stenosis or dissection within the bilateral common carotid, cervical internal carotid or vertebral arteries. ACT 112: Negative or not required by law. Electronically signed by: Pepito Fox M.D. 08/27/2024 12:01 PM Code Status & VTE Plan Code Status Full Supervising Physician Co-Signing Physician Notes I personally saw and examined the patient. I independently reviewed the labs, EKG, imaging, problem list, medication list, past medical history and family history. I verified all muñoz points and agree with Kaylen Horvath PA-C with the following exceptions and/or additions: 73 year old female presents to the ER with dysarthria. Patient is not orientated to time or place. Unable to get any significant history from the patient. Baseline dementia noted. O/E HS RRR, no murmurs, Chest CTAB, Abdo SNT, no co-ordination deficit, CN2-> 12 intact, no extremity weakness or loss of sensation A/P Acute CVA - acute lacunar infarcts in the right medial cerebellum extending into the superior cerebellar peduncle, ASA, clopidogrel, stroke order set used. No TNK as symptoms lasting > 24 hours. Switch simvastatin to atorvastatin. Consult neurology. TTE with bubble study. PT/OT PG Care Time/CCT Total # of Minutes Spent Total Time Spent with Patient: Total time spent is greater than 50% in coordination of care (as documented) at patient's floor/unit and/or counseling patient: Coding Level of Care Code 50073 INT INP/OBS CARE MIN Diagnoses TIA (transient ischemic attack) G45.9 Mixed Alzheimer's and vascular dementia G30.9; F01.50; F02.80 Time Spent (min) 60
[2024-08-27] MEDS ORDERED: DICLOFENAC SOD 1% GEL 100 GM TUBE EXT PRN (14:46)
--- NOTE | 2024-08-27 15:27 | Magnetic Resonance Report ---
EXAM: MR brain wo con CLINICAL HISTORY: TIA (transient ischemic attack) Presenting w/ dysarthria and difficulty finding words x 3-4 days, seems to worsen at night but also ? more pronounced when patient does not have hearing aids in; No neurological deficits on exam- mild dysarthria and prolonged time finding words but at baseline per son w/ exception of slurred speech - CT head- 1.6 x 0.8 centimeters hypodense focus within the superior right cerebellar hemisphere new since previous MRI (02/14/2020), suggestive of subacute to acute infarct, 7 mm hypodense focus in the left midbrain, likely artifactual although small infarcts appear similar - CTA head/neck without large vessel occlusion or intracranial aneurysm, moderate atherosclerotic plaque within the proximal bilateral internal carotid arteries without significant stenosis TECHNIQUE: MRI of the brain was performed without contrast with multiplanar sequences obtained. COMPARISON: No previous studies are available for comparison. FINDINGS: Brain Parenchyma: There is evidence of extensive bilateral periventricular and subcortical T2/FLAIR hyperintensities in cereberal hemisoheres and in the right cerebellum and mid brain likely signifying extensive microvascular angiopathic changes. There are foci of restricted diffusion in the right medial cerebellar hemisphere extending in superior cerebellar peduncle signifying acute lacunar infarcts. No evidence of intracranial hemorrhage. Ventricles and Sulci: Prominent intra and extra-ventricular CSF spaces are noted with prominent VR spaces signifying involutionary changes in the brain. No evidence of hydrocephalus or ventriculomegaly. Cranial Nerves: Normal course and appearance of cranial nerves identified. Orbits and Skull Base: Orbits and skull base structures are normal without evidence of abnormalities. IMPRESSION: 1. Features are in keeping with senile involutionary changes with advanced microvascular angiopathic changes and acute lacunar infarcts in the right medial cerebellum extending into the superior cerebellar peduncle. 2. No intracranial bleed is seen. Electronically signed by Jack Braswell 08-27-2024 3:27 PM
[2024-08-27] MEDS ORDERED: PHARMACIST DISCHARGE MED REC CONSULT PRN (16:07)
[2024-08-27] MEDS: ASPIRIN 81 MG ECTAB PO SCH (17:53)
[2024-08-27] MEDS: CLOPIDOGREL BISULFATE 300 MG TAB PO ONE (17:54)
--- NOTE | 2024-08-27 19:52 | Emergency Department Note ---
Impression & Plan Cerebellar stroke ED Provider Note CHIEF COMPLAINT: Speech difficulty HISTORY OF PRESENT ILLNESS: This 73-year-old female patient with past medical history of vascular dementia, cerebrovascular disease, vertigo, hypercholesterolemia, hypertension, hearing loss presents to the emergency department with 3 to 4 days of slurred speech. Family members state they noticed that particularly when she was fatigued. She has not been particularly confused or different than her baseline. Son denies any facial weakness, extremity weakness and difficulty ambulating. REVIEW OF SYSTEMS: A review of systems was performed with positives and pertinent negatives listed in the history of present illness. 10 systems were reviewed and are otherwise negative. ALLERGIES: see below MEDICATIONS: see below PMH: see below SOCIAL HISTORY: see below DDx: TIA, CVA, intracranial mass, intracranial hemorrhage, seizure infectious etiology among others. PHYSICAL EXAM: Vital signs reviewed. General: Well-appearing 73-year-old female, in no significant distress. HEENT: No scleral icterus, PERRLA, neck supple. Moist mucous membranes, atraumatic Cardiovascular: Regular rate and rhythm, no extra sounds. Pulmonary: Clear to auscultation bilaterally, normal work of breathing. Abdomen: Soft, nontender, nondistended, positive bowel sounds. Musculoskeletal: Atraumatic, no peripheral edema. Neurologic: Patient awake alert and oriented x 3, speech is slightly muffled but otherwise clear. He no word finding difficulties. Intact cranial nerves, negative pronator drift. Equal strength in the bilateral upper and lower extremities. Skin: Warm, dry, no rash EMERGENCY DEPARTMENT COURSE/MDM: This patient was evaluated and appeared to be in no significant distress. Physical examination reveals only a slight slur/muffling to her speech. There are no word finding difficulties, facial droop or extremity weakness. No cerebellar abnormalities identified at this time. CT imaging of the head was performed and there is a 1.6 x 0.8 cm hypodense focus in the right cerebellum, concerning for subacute to acute stroke. Given the duration of symptoms over the last several days, patient is not a candidate for thrombolytic therapy, no large vessel occlusion is identified on imaging. Suspect this is a subacute infarct however the patient will require hospitalization for further evaluation and management. She and her daughter at the bedside were informed of the findings and plan and agreed. MONITORING: An order for cardiac monitoring was placed and the patient is noted to be in a normal sinus rhythm at 72 beats per minute. RADIOLOGY: CT imaging of the head IMPRESSION: 1. No acute intracranial hemorrhage. No mass effect. 2. 1.6 x 0.8 cm hypodense focus within the superior right cerebellar hemisphere which is new since previous MRI. This suggests a subacute to acute infarct. 3. 7 mm hypodense focus within the left midbrain. This is likely artifactual although a small infarct could appear similar. 4. White matter hypodense foci suggestive of small vessel disease. EKG: To my interpretation reveals a sinus bradycardia at 55 bpm, normal ST segments. Previous inferior infarct. QTc of 399. No PVC, no PAC. DISPOSITION: Admission Past Med/Surg History Problem List (Updated 09/01/24 @ 05:21 by Lizbeth Murry MD) Cerebellar stroke (Acute) TIA (transient ischemic attack) Mixed Alzheimer's and vascular dementia Alzheimer disease Cerebrovascular disease H/O concussion Mild cognitive impairment Vertigo Hypercholesteremia (Acute) Hypertension (Acute) SNHL (sensorineural hearing loss) (Acute) Surgical History S/P breast biopsy Family History Father Hypertension Mother Oral cancer Social History Smoking Status: Never smoker Hx Alcohol Use: No Hx Substance Use: No Preferred Language: [place]ican Communication Ability: Effective Taxi Driver Supervisor Required: No Beliefs That Will Affect Care: None marital status: Current Living Situation: Alone Feels Safe at Home: Yes Assistive Devices: Glasses Allergies Allergies Allergy/AdvReac Type Severity Reaction Status Date / Time No Known Allergies Allergy Verified 06/09/24 10:55 Home Meds Home Medications Medication Instructions Recorded Confirmed losartan 100 mg tablet 100 mg PO DAILY 02/29/20 08/27/24 venlafaxine 150 mg tablet,extended 150 mg PO DAILY 02/29/20 08/27/24 release 24 hr diclofenac sodium 1 % topical gel 2 g topical QID PRN Pain 08/27/24 08/27/24 donepezil 5 mg tablet 5 mg PO DAILY 08/27/24 08/27/24 Previous Rx's Medication Instructions Recorded amlodipine 5 mg tablet (Norvasc) 10 mg (2 x 5 mg) PO QAM 1 month 08/30/24 #60 tabs aspirin 81 mg tablet,delayed 81 mg PO DAILY 1 month #30 tabs 08/30/24 release atorvastatin 40 mg tablet 40 mg PO QAM 1 month #30 tabs 08/30/24 clopidogrel 75 mg tablet 75 mg PO QAM 19 days #19 tabs 08/30/24 Results & Data (ED) Vital Signs Vital Signs - 24 hr 08/27/24 10:42 08/27/24 11:02 08/27/24 11:04 Temperature 36.4 C L Temperature Source Oral Pulse Rate 60 Pulse Rate [Apical] Pulse Rate from SpO2 Sensor Pulse Rhythm Regular Pulse Strength Normal Respiratory Rate 18 Respiratory Effort / Characteristics Non-Labored Spontaneous Respiratory Depth Normal Respiratory Pattern Regular Blood Pressure 177/81 H 158/91 H Blood Pressure [Left Arm] Blood Pressure Mean 113 114 Blood Pressure Mean [Left Arm] Blood Pressure Position Sitting Pulse Oximetry 98 98 Oxygen Delivery Method Room Air Room Air Sepsis Recent Fever Within 48 Hours No Sepsis New/Unexplained Change in Mental Status No Sepsis Action Taken by Nursing No Action Required 08/27/24 11:04 08/27/24 11:06 08/27/24 12:18 Temperature Temperature Source Pulse Rate 63 Pulse Rate [Apical] 72 Pulse Rate from SpO2 Sensor 63 Pulse Rhythm Pulse Strength Respiratory Rate 17 16 Respiratory Effort / Characteristics Respiratory Depth Respiratory Pattern Blood Pressure Blood Pressure [Left Arm] 156/91 H Blood Pressure Mean Blood Pressure Mean [Left Arm] 112 Blood Pressure Position Pulse Oximetry 98 97 95 Oxygen Delivery Method Room Air Room Air Sepsis Recent Fever Within 48 Hours Sepsis New/Unexplained Change in Mental Status Sepsis Action Taken by Nursing 08/27/24 12:31 Temperature Temperature Source Pulse Rate 50 L Pulse Rate [Apical] Pulse Rate from SpO2 Sensor Pulse Rhythm Pulse Strength Respiratory Rate Respiratory Effort / Characteristics Respiratory Depth Respiratory Pattern Blood Pressure Blood Pressure [Left Arm] Blood Pressure Mean Blood Pressure Mean [Left Arm] Blood Pressure Position Pulse Oximetry Oxygen Delivery Method Sepsis Recent Fever Within 48 Hours Sepsis New/Unexplained Change in Mental Status Sepsis Action Taken by Assisted Medications Current Medication List: was personally reviewed by me Laboratory Data Attestation: I reviewed the patient's lab results. 08/30/24 06:02 08/30/24 06:02 Lab Results 08/27/24 Range/Units 10:55 WBC 7.41 (4.8-10.8) K/ul RBC 4.69 (4.20-5.40) M/uL Hgb 14.8 (12.0-16.0) g/dl Hct 42.8 (37.0-47.0) % MCV 91.3 (80.0-100.0) fL MCH 31.6 (25.0-34.0) pg MCHC 34.6 (32.0-36.0) g/dL RDW Std Deviation 39.8 (36.4-46.3) fL RDW Coeff of Barbi 11.9 (11.5-14.5) % Plt Count 191 (130-400) K/uL MPV 9.4 (9.4-12.4) fL Immature Gran % (Auto) 0.3 % Neut % (Auto) 72.3 % Lymph % (Auto) 19.2 % Latimer % (Auto) 7.0 % Eos % (Auto) 0.8 % Baso % (Auto) 0.4 % Neut # (Auto) 5.47 (1.40-6.50) K/uL Lymph # (Auto) 1.45 (1.20-3.40) K/uL Latimer # (Auto) 0.53 (0.11-0.59) K/uL Eos # (Auto) 0.06 (0.00-0.50) K/uL Baso # (Auto) 0.03 (0.00-0.20) K/uL Immature Gran # (Auto) 0.02 (0.01-0.20) K/uL PT 10.9 (9.0-12.0) Seconds INR 1.0 (0.9-1.1) APTT 26 (21-31) Seconds PTT Ratio 1.0 Sodium 142 (136-145) mmol/L Potassium 3.6 (3.5-5.1) mmol/L Chloride 108 H (98-107) mmol/L Carbon Dioxide 28 (21-32) mmol/L Anion Gap 6 (3-11) BUN 24 H (6-23) mg/dl Creatinine 1.07 (0.6-1.2) mg/dl Est Cr Clr Drug Dosing 45.5 ml/min eGFR 54.17 BUN/Creatinine Ratio 22.4 H (10-20) Glucose 93 (70-99(Fasting)) mg/dl Calcium 9.2 (8.6-10.3) mg/dl Magnesium 2.2 (1.7-2.4) mg/dl Total Bilirubin 0.8 (0.2-1.0) mg/dl AST 21 (13-39) U/L ALT 14 (7-52) U/L Alkaline Phosphatase 100 (34-104) U/L Troponin I High Sens 6.1 (0-14) pg/ml Total Protein 6.9 (6.0-8.3) gm/dl Albumin 4.2 (3.4-5.0) gm/dl Globulin 2.7 (2.5-4.0) gm/dl Albumin/Globulin Ratio 1.6 (0.9-2) Administered Medications Discontinued Medications Amlodipine Besylate (Amlodipine Besylate 5 Mg Tab) 10 mg PO [facility] Stop: 09/28/24 08:59 Last Admin: 08/30/24 08:13 Dose: 10 mg Documented By: Admin: 08/29/24 09:39 Dose: 10 mg Documented By: ABELARDO Aspirin (Aspirin 81 Mg Ectab) 81 mg PO DAILY [facility] Stop: 09/26/24 16:14 Last Admin: 08/30/24 08:13 Dose: 81 mg Documented By: Admin: 08/29/24 08:15 Dose: 81 mg Documented By: Admin: 08/28/24 08:33 Dose: 81 mg Documented By: Admin: 08/27/24 17:53 Dose: 81 mg Documented By: HEIDY Atorvastatin Calcium (Atorvastatin 40 Mg Tab) 40 mg PO [facility] Stop: 09/27/24 08:59 Last Admin: 08/30/24 08:13 Dose: 40 mg Documented By: Admin: 08/29/24 08:14 Dose: 40 mg Documented By: Admin: 08/28/24 08:32 Dose: 40 mg Documented By: TAMARA Clopidogrel Bisulfate (Clopidogrel Bisulfate 300 Mg Tab) 300 mg PO NOW ONE Stop: 08/27/24 16:13 Last Admin: 08/27/24 17:54 Dose: 300 mg Documented By: HEIDY Clopidogrel Bisulfate (Clopidogrel Bisulfate 75 Mg Tab) 75 mg PO [facility] Stop: 09/27/24 08:59 Last Admin: 08/30/24 08:13 Dose: 75 mg Documented By: Admin: 08/29/24 08:14 Dose: 75 mg Documented By: Admin: 08/28/24 08:33 Dose: 75 mg Documented By: TAMARA Donepezil HCl (Donepezil Hcl 5 Mg Tab) 5 mg PO DAILY [facility] Stop: 09/27/24 08:59 Last Admin: 08/30/24 08:13 Dose: 5 mg Documented By: Admin: 08/29/24 08:14 Dose: 5 mg Documented By: Admin: 08/28/24 08:32 Dose: 5 mg Documented By: TAMARA Losartan Potassium (Losartan Potassium 50 Mg Tab) 100 mg PO DAILY [facility] Stop: 09/27/24 08:59 Last Admin: 08/30/24 08:13 Dose: 100 mg Documented By: Admin: 08/29/24 08:14 Dose: 100 mg Documented By: Admin: 08/28/24 08:32 Dose: 100 mg Documented By: TAMARA Potassium Chloride (Potassium Chloride Crtab 20 Meq Tabcr) 20 meq PO NOW ST[facility] Stop: 08/29/24 13:02 Last Admin: 08/29/24 14:34 Dose: 20 meq Documented By: ABELARDO Venlafaxine HCl (Venlafaxine Hcl Xr 150 Mg Capxr) 150 mg PO DAILY [facility] Stop: 09/27/24 08:59 Last Admin: 08/30/24 08:13 Dose: 150 mg Documented By: Admin: 08/29/24 08:15 Dose: 150 mg Documented By: Admin: 08/28/24 08:32 Dose: 150 mg Documented By: TAMARA Imaging Data Radiologist's Impression: Head CT 08/27/24 11:13 CT OF THE HEAD WITHOUT CONTRAST CLINICAL HISTORY: neuro deficit, acute stroke suspected. Slurred speech. COMPARISON STUDY: MRI of the brain April 28, 2019. TECHNIQUE: Helical axial images of the head were obtained without IV contrast. Automated exposure control was utilized for the study. A dose lowering technique was utilized adhering to the principles of ALARA. FINDINGS: No acute intracranial hemorrhage, midline shift or mass effect is present. The ventricular system is unremarkable. Basal cisterns are patent. There are no extra axial collections. A 1.6 x 0.8 cm hypodense focus within the superior right cerebellar hemisphere on image 10 of 28 is new since MRI of April 28, 2019. White matter hypodense foci suggest small vessel disease. There is a 7 mm hypointense focus within the left midbrain on image 10. IMPRESSION: 1. No acute intracranial hemorrhage. No mass effect. 2. 1.6 x 0.8 cm hypodense focus within the superior right cerebellar hemisphere which is new since previous MRI. This suggests a subacute to acute infarct. 3. 7 mm hypodense focus within the left midbrain. This is likely artifactual although a small infarct could appear similar. 4. White matter hypodense foci suggestive of small vessel disease. ACT 112: Negative or not required by law. Electronically signed by: Pepito Fox M.D. 08/27/2024 11:57 AM Head CTA 08/27/24 11:13 CTA ANGIOGRAPHY OF THE HEAD CLINICAL HISTORY: neuro deficit, acute stroke suspected COMPARISON STUDY: MRI of the brain April 28, 2019. TECHNIQUE: Helical axial images of the head were obtained following uneventful intravenous administration of 121 cc of Optiray. Sagittal and coronal reconstructions were viewed as well as maximal intensity projections on an independent 3-D workstation. Automated exposure control was utilized for the study. A dose lowering technique was utilized adhering to the principles of ALARA. FINDINGS: The bilateral M1, M2, A1 and A2 segments are patent. No vascular occlusion is present. There is minimal plaque within the cavernous carotids without stenosis. The posterior circulation is intact. There is no intracranial aneurysm. Please note that the head CT will be reported separately. A small hypodense focus within the superior right cerebellar hemisphere is better depicted on that exam. IMPRESSION: No large vessel occlusion. No intracranial aneurysm. ACT 112: Negative or not required by law. Electronically signed by: Pepito Fox M.D. 08/27/2024 12:05 PM Neck CTA 08/27/24 11:13 CT ANGIOGRAPHY OF THE NECK WITH CONTRAST CLINICAL HISTORY: neuro deficit, acute stroke suspected COMPARISON STUDY: No previous studies for comparison. Technique: CT angiography of the carotid and vertebral arteries was obtained using Optiray and 3D reconstruction on an independent workstation. NASCET criteria was utilized. Automated exposure control was utilized for the study. A dose lowering technique was utilized adhering to the principles of ALARA. CT DOSE: 875.81 mGy.cm Findings: Visualized portions of the lung apices are unremarkable. There is no cervical adenopathy. No cervical spine fracture. There is moderate calcified atherosclerotic plaque within the proximal bilateral internal carotid arteries without significant stenosis. There is no aneurysm or dissection within the neck. The vertebral arteries are patent. IMPRESSION: 1. Moderate atherosclerotic plaque within the proximal bilateral internal carotid arteries without significant stenosis. 2. No stenosis or dissection within the bilateral common carotid, cervical internal carotid or vertebral arteries. ACT 112: Negative or not required by law. Electronically signed by: Pepito Fox M.D. 08/27/2024 12:01 PM Discharge Plan Visit Data Chief Complaint: Stroke/CVA Symptoms Stated Complaint: REF BY DOC FOR MORE TESTING ED Provider: Lizbeth Murry Discharge Problem: Cerebellar stroke Patient Disposition: Admitted As Inpatient Discharge Instructions Interventions: ED Discharge Assessment Last Done: 08/27/24 14:22
[2024-08-27] MEDS ORDERED: SIMVASTATIN 20 MG TAB PO SCH (21:00)
[2024-08-28 06:24] LABS: Basophils # (auto) 0.03 K/uL (0.00-0.20); Basophils % (auto) 0.5 %; Eosinophils # (auto) 0.13 K/uL (0.00-0.50); Eosinophils % (auto) 2.2 %; Hematocrit (blood only) 38.7 % (37.0-47.0); Hemoglobin 13.6 g/dl (12.0-16.0); Immature Granulocytes # (auto) 0.02 K/uL (0.01-0.20); Immature Granulocytes % (auto) 0.3 %; Lymphocytes % (auto) 26.8 %; Mean Corpuscular Hemoglobin 32.3 pg (25.0-34.0); Mean Corpuscular Hgb Conc 35.1 g/dL (32.0-36.0); Mean Corpuscular Volume 91.9 fL (80.0-100.0); Monocytes % (auto) 8.4 %; Neutrophils # (auto) 3.69 K/uL (1.40-6.50); Neutrophils % (auto) 61.8 %; Platelet Count 167 K/uL (130-400); RDW Coefficient of Variation 11.9 % (11.5-14.5); RDW Standard Deviation 40.4 fL (36.4-46.3); Red Blood Count 4.21 M/uL (4.20-5.40); White Blood Count 5.97 K/ul (4.8-10.8)
[2024-08-28 06:47] LABS: BUN Creatinine Ratio 20.5 (10-20); Creatinine Clr Calc Pharmacy 42.7 ml/min; Potassium 3.7 mmol/L (3.5-5.1)
[2024-08-28 07:16] LABS: Estimated Average Glucose 94 mg/dl; Hemoglobin A1C 4.9 % (4.5-5.6)
--- NOTE | 2024-08-28 07:49 | Electrocardiogram Report ---
Test Reason : Blood Pressure : */* mmHG Vent. Rate : 55 BPM Atrial Rate : 55 BPM P-R Int : 136 ms QRS Dur : 84 ms QT Int : 418 ms P-R-T Axes : 57 -22 83 degrees QTcB Int : 399 ms Sinus bradycardia Inferior infarct , age undetermined Abnormal ECG When compared with ECG of 29-Dec-2016 16:29, Vent. rate has decreased by 32 bpm Questionable change in QRS axis Confirmed by Que Tariq ([id number]) on 08/28/2024 7:49:32 AM Referred By: Saba Garcia Confirmed By: Que Tariq
[2024-08-28] MEDS: VENLAFAXINE HCL XR 150 MG CAPXR PO SCH (08:32)
[2024-08-28] MEDS: ATORVASTATIN 40 MG TAB PO SCH (08:32)
[2024-08-28] MEDS: DONEPEZIL HCL 5 MG TAB PO SCH (08:32)
[2024-08-28] MEDS: LOSARTAN POTASSIUM 50 MG TAB PO SCH (08:32)
[2024-08-28] MEDS: CLOPIDOGREL BISULFATE 75 MG TAB PO SCH (08:33)
--- NOTE | 2024-08-28 10:50 | Neurology Consultation ---
Date of Consultation August 28, 2024 Assessment & Plan (1) Cerebellar stroke: Plan 73-year-old female presenting for an acute right medial (vermian) cerebellar infarct with associated speech disfluency, dysarthria, and mild right hemiataxia. No evidence of vertebrobasilar occlusive disease or other significant vascular lesion on CT angiography. Agree with dual antiplatelet therapy, aspirin 81 mg/day, Plavix 75 mg/day for 3 weeks. Afterwards, will transition to aspirin monotherapy, 81 mg/day. Agree with atorvastatin 40 mg/day. Would recommend transthoracic echocardiogram with bubble study. Ambulatory cardiac monitoring. Permissive hypertension appropriate acutely, may allow for a systolic blood pressure between 140 and 160 mmHg. May continue with losartan as ordered. Consultations with PT/OT/speech therapy. May continue with donepezil as prescribed for dementia. Patient may follow-up with myself or an CATHIE in neurology clinic in 2 to 3 weeks after discharge. History of Present Illness Reason for Consultation: Stroke Requesting Physician: Alexandru Attending Physician: Christina Fisher MD History of Present Illness The patient is a 73-year-old female who is known to me, I last saw her in neurology clinic June 09, 2024 regarding mild to moderate dementia. She presented to the emergency department last night with a chief complaint of dysarthria, speech disfluency which began a few days prior. She denies other associated symptoms such as diplopia, vertigo, or weakness of the limbs although does endorse some mild difficulty with balance. A CT of the head suggested an evolving right cerebellar infarct. CTA of the head and neck were negative for significant vascular lesion. Brain MRI revealed no acute right medial cerebellar infarct and chronic small vessel ischemic disease. I independently reviewed these images. She continues to exhibit mild speech disfluency and dysarthria this morning, see examination below. She has been started on dual antiplatelet therapy. Simvastatin discontinued in favor of atorvastatin. She was modestly hypertensive at time of presentation, blood pressure normal this morning. She denies headache or difficulty swallowing. Allergies Allergy/AdvReac Type Severity Reaction Status Date / Time No Known Allergies Allergy Verified 06/09/24 10:55 Home Medications Medication Instructions Recorded Confirmed Type losartan 100 mg tablet 100 mg PO DAILY 02/29/20 08/27/24 History venlafaxine 150 mg tablet,extended 150 mg PO DAILY 02/29/20 08/27/24 History release 24 hr simvastatin 20 mg tablet 20 mg PO QPM 06/11/23 08/27/24 History diclofenac sodium 1 % topical gel 2 g topical QID PRN Pain 08/27/24 08/27/24 History donepezil 5 mg tablet 5 mg PO DAILY 08/27/24 08/27/24 History Patient History Surgical History S/P breast biopsy Family History Father Hypertension Mother Oral cancer Social History Smoking Status: Never smoker Hx Alcohol Use: No Hx Substance Use: No Preferred Language: Swedish Communication Ability: Effective Staff Antisubmarine Officer Required: No Beliefs That Will Affect Care: None marital status: Current Living Situation: Alone Other Information That Helps Us Care for You: No Feels Safe at Home: Yes Safety Concerns: Feels Safe At This Time Assistive Devices: Glasses and Hearing Aid - Bilateral Review of Systems Constitutional: no fever and no chills Eyes: no blind spots and no diplopia Ear, Nose, Mouth, Throat: no hearing loss Respiratory: no cough and no dyspnea Cardiovascular: no chest pain and no palpitations Gastrointestinal: no nausea and no vomiting Genitourinary: no dysuria Musculoskeletal: no myalgia Integumentary: no rash and no lesions Neurologic: as per Subjective / HPI Psychiatric: no depression and no anxiety Hematologic / Lymphatic: no easy bleeding and no easy bruising Exam (Neuro) Constitutional: well developed and well nourished; no acute distress Eyes: normal visual arreola by confrontation, PERRL and EOM intact bilaterally; no nystagmus Neurologic: Oriented to:: Person, Place and Time Memory: Remote Intact; negative Short Term Intact Attention: Span Intact and Concentration Intact Speech Fluency: Dysarthria and Dysfluency Speech Aphasia: negative Aphasia Fund of Knowledge: Past History and Vocabulary; negative Current Events Cranial Nerves: Normal II, III, IV, , V, VII, VIII, IX, X, XI and XII Motor Strength: Normal Lower Extremities and Normal Upper Extremities Motor Tone: Normal Lower Extremities and Normal Upper Extremities Muscle Bulk/Involuntary Movements: No Involuntary Movements; negative Muscle Atrophy Sensation: Light Touch Intact, Pain/Temperature Intact and Proprioception Intact Coordination: Finger-Nose Abnormal Laterality: Right and Heel-Guevara Abnormal Laterality: Right Deep Tendon Reflexes: Rt Triceps: 2+, Lt Triceps: 2+, Rt Biceps: 2+, Lt Bic eps: 2+, Rt Brachioradialis: 2+, Lt Brachioradialis: 2+, Rt Patellar: 2+, Lt Patellar: 2+, Rt Ankle: 1+ and Lt Ankle: 1+ Special Tests: negative Babinski Present Details: Patient exhibits moderate speech disfluency, mild dysarthria, mild right hemiataxia Results & Data Vital Signs (Past 12 Hours) Vital Signs Temp Pulse Resp BP Pulse Ox O2 Del Method 08/28/24 07:57 37.0 C 59 L 20 135/66 96 Room Air 08/28/24 03:40 36.6 C 54 L 16 133/70 95 Room Air 08/27/24 23:20 36.5 C 67 16 135/70 96 Room Air Laboratory Results WBC 5.97, hemoglobin 13.6, hematocrit 38.7, platelet count 167, sodium 144, potassium 3.7, BUN 23, creatinine 1.12, glucose 86, hemoglobin A1c 4.9, calcium 9.0, magnesium 2.2, AST 21, ALT 14, triglycerides 97, cholesterol 209, LDL 138, VLDL 19, HDL [address] of the head, CTA of the head and neck, and brain MRI are as described in HPI, I independently reviewed these images. Electrocardiogram reveals sinus bradycardia, 55 bpm Coding Level of Care Code 77672 INT INP/OBS CARE 3/75MIN Diagnoses Cerebellar stroke I63.9 Time Spent (min) 90 Comment Total time includes patient contact, chart review, counseling, note preparation
--- NOTE | 2024-08-28 12:51 | XCELERA ---
[id number] [id number]
--- NOTE | 2024-08-28 14:00 | Hospitalist Progress Note ---
Date of Service August 28, 2024 Assessment & Plan (1) Cerebellar stroke: Plan: Patient presented with dysarthria CT head and MRI suggestive of cerebellar stroke CTA head and neck negative - 2D Echo Bubble negative - A1c 4.9 -Lipid panel reviewed. Simvastatin changed to atorvastatin - Troponin 6.1; no chest pain - EKG sinus bradycardia rate around 55 bpm - TSH pending - DAPT started - ASA + Plavix started 08/27, continue Neurology on board. Appreciate input. Allow permissive hypertension today. Will manage blood pressure more aggressively tomorrow. (2) Mixed Alzheimer's and vascular dementia: Plan: Mental status harris, patient is at baseline per son; Follows with Dr. Resendiz, most recent visit 06/09/24 - Donepezil 5 mg daily Plan HTN- Losartan 100mg Mood- Venlafaxine 150mg VTE Prophylaxis: Starting DAPT Code: Full Admission and Anticipated Discharge Date Admission Date: August 27, 2024 Subjective Patient was seen and examined at 11:20 AM. She was accompanied by her daughter at the bedside. She stated that the slurred speech has improved. Review of Systems Review of Systems: All systems reviewed & are unremarkable except as noted in Subjective Physical Exam Physical Exam: General: Awake, conversant Heart: S1, S2/regular rate and rhythm, no murmur rubs or gallops Lungs: Clear to auscultation bilaterally. Normal effort Abdomen: Soft/nontender/nondistended. No hepatosplenomegaly Extremities: No clubbing/cyanosis. No edema Behavior: Appropriate, cooperative Results & Data Results & Data Vital Signs (Past 12 Hours) Vital Signs Temp Pulse Resp BP Pulse Ox O2 Del Method 08/28/24 11:41 36.7 C 75 16 183/89 H 96 Room Air 08/28/24 07:57 37.0 C 59 L 20 135/66 96 Room Air 08/28/24 03:40 36.6 C 54 L 16 133/70 95 Room Air Laboratory Results Abnormal lab results 08/28/24 Range/Units 05:40 Chloride 108 H (98-107) mmol/L BUN/Creatinine Ratio 20.5 H (10-20) Cholesterol 209 H (0-200) mg/dl Diagnostic Findings Brain MRI 08/27/24 13:25 EXAM: MR brain wo con CLINICAL HISTORY: TIA (transient ischemic attack) Presenting w/ dysarthria and difficulty finding words x 3-4 days, seems to worsen at night but also ? more pronounced when patient does not have hearing aids in; No neurological deficits on exam- mild dysarthria and prolonged time finding words but at baseline per son w/ exception of slurred speech - CT head- 1.6 x 0.8 centimeters hypodense focus within the superior right cerebellar hemisphere new since previous MRI (02/14/2020), suggestive of subacute to acute infarct, 7 mm hypodense focus in the left midbrain, likely artifactual although small infarcts appear similar - CTA head/neck without large vessel occlusion or intracranial aneurysm, moderate atherosclerotic plaque within the proximal bilateral internal carotid arteries without significant stenosis TECHNIQUE: MRI of the brain was performed without contrast with multiplanar sequences obtained. COMPARISON: No previous studies are available for comparison. FINDINGS: Brain Parenchyma: There is evidence of extensive bilateral periventricular and subcortical T2/FLAIR hyperintensities in cereberal hemisoheres and in the right cerebellum and mid brain likely signifying extensive microvascular angiopathic changes. There are foci of restricted diffusion in the right medial cerebellar hemisphere extending in superior cerebellar peduncle signifying acute lacunar infarcts. No evidence of intracranial hemorrhage. Ventricles and Sulci: Prominent intra and extra-ventricular CSF spaces are noted with prominent VR spaces signifying involutionary changes in the brain. No evidence of hydrocephalus or ventriculomegaly. Cranial Nerves: Normal course and appearance of cranial nerves identified. Orbits and Skull Base: Orbits and skull base structures are normal without evidence of abnormalities. IMPRESSION: 1. Features are in keeping with senile involutionary changes with advanced microvascular angiopathic changes and acute lacunar infarcts in the right medial cerebellum extending into the superior cerebellar peduncle. 2. No intracranial bleed is seen. Electronically signed by Jack Braswell 08-27-2024 3:27 PM PG Care Time/CCT Total # of Minutes Spent Total Time Spent with Patient: Total time spent is greater than 50% in coordination of care (as documented) at patient's floor/unit and/or counseling patient: Coding Level of Care Code 44031 SUB INP/OBS CARE 2/35MIN Diagnoses Cerebellar stroke I63.9 Mixed Alzheimer's and vascular dementia G30.9; F01.50; F02.80
[2024-08-29 07:01] LABS: Basophils # (auto) 0.04 K/uL (0.00-0.20); Basophils % (auto) 0.5 %; Eosinophils # (auto) 0.09 K/uL (0.00-0.50); Eosinophils % (auto) 1.2 %; Hematocrit (blood only) 40.7 % (37.0-47.0); Hemoglobin 14.5 g/dl (12.0-16.0); Immature Granulocytes # (auto) 0.03 K/uL (0.01-0.20); Immature Granulocytes % (auto) 0.4 %; Lymphocytes # (auto) 1.52 K/uL (1.20-3.40); Lymphocytes % (auto) 19.5 %; Mean Corpuscular Hgb Conc 35.6 g/dL (32.0-36.0); Mean Corpuscular Volume 89.8 fL (80.0-100.0); Mean Platelet Volume 9.6 fL (9.4-12.4); Monocytes # (auto) 0.57 K/uL (0.11-0.59); Monocytes % (auto) 7.3 %; Neutrophils # (auto) 5.54 K/uL (1.40-6.50); Neutrophils % (auto) 71.1 %; Platelet Count 185 K/uL (130-400); RDW Coefficient of Variation 11.5 % (11.5-14.5); RDW Standard Deviation 37.6 fL (36.4-46.3); Red Blood Count 4.53 M/uL (4.20-5.40); White Blood Count 7.79 K/ul (4.8-10.8)
[2024-08-29 07:20] LABS: BUN Creatinine Ratio 24.1 (10-20); Calcium 8.9 mg/dl (8.6-10.3); Potassium 3.4 mmol/L (3.5-5.1)
[2024-08-29] MEDS: amLODIPine BESYLATE 5 MG TAB PO SCH (09:39)
--- NOTE | 2024-08-29 12:58 | Hospitalist Progress Note ---
Date of Service August 29, 2024 Assessment & Plan (1) Cerebellar stroke: Plan: Patient presented with dysarthria CT head and MRI suggestive of cerebellar stroke CTA head and neck negative - 2D Echo Bubble negative - A1c 4.9 -Lipid panel reviewed. Simvastatin changed to atorvastatin - Troponin 6.1; no chest pain - EKG sinus bradycardia rate around 55 bpm - TSH pending - DAPT started - ASA + Plavix started 08/27, continue for 3 weeks, then switch to aspirin only Neurology on board. Appreciate input. Blood pressure elevated today. Added Norvasc 10 mg on top of losartan (2) Mixed Alzheimer's and vascular dementia: Plan: Mental status harris, patient is at baseline per son; Follows with Dr. Resendiz, most recent visit 06/09/24 - Donepezil 5 mg daily Plan HTN- Losartan 100mg. Blood pressure still elevated. Add Norvasc Mood- Venlafaxine 150mg VTE Prophylaxis: Starting DAPT Code: Full Awaiting PT/OT evaluation. Likely discharge tomorrow Admission and Anticipated Discharge Date Admission Date: August 27, 2024 Subjective Patient was seen and examined at 10:05 AM. She denied chest pain or shortness of breath. She says that her slurred speech is improving as well. She is is that she has been able to walk to the bathroom and back without any trouble ambulating. Review of Systems Review of Systems: All systems reviewed & are unremarkable except as noted in Subjective Physical Exam Physical Exam: General: Awake, conversant Heart: S1, S2/regular rate and rhythm, no murmur rubs or gallops Lungs: Clear to auscultation bilaterally. Normal effort Abdomen: Soft/nontender/nondistended. No hepatosplenomegaly Extremities: No clubbing/cyanosis. No edema Behavior: Appropriate, cooperative Results & Data Results & Data Vital Signs (Past 12 Hours) Vital Signs Temp Pulse Pulse Resp BP Pulse Ox O2 Del Method 08/29/24 11:39 36.8 C 66 18 151/78 H 94 Room Air 08/29/24 07:20 36.7 C 65 17 180/84 H 94 Room Air 08/29/24 07:00 69 08/29/24 03:26 36.7 C 66 16 179/96 H 95 Room Air Laboratory Results Abnormal lab results 08/29/24 Range/Units 06:33 Potassium 3.4 L (3.5-5.1) mmol/L BUN/Creatinine Ratio 24.1 H (10-20) PG Care Time/CCT Total # of Minutes Spent Total Time Spent with Patient: Total time spent is greater than 50% in coordination of care (as documented) at patient's floor/unit and/or counseling patient: Coding Level of Care Code 56780 SUB INP/OBS CARE 2/35MIN Diagnoses Cerebellar stroke I63.9 Mixed Alzheimer's and vascular dementia G30.9; F01.50; F02.80
[2024-08-29] MEDS: POTASSIUM CHLORIDE CRTAB 20 MEQ TABCR PO STA (14:34)
[2024-08-30 03:36] VITALS: RESP 18
[2024-08-30 07:29] LABS: Basophils # (auto) 0.04 K/uL (0.00-0.20); Basophils % (auto) 0.6 %; Eosinophils # (auto) 0.11 K/uL (0.00-0.50); Eosinophils % (auto) 1.6 %; Hematocrit (blood only) 41.3 % (37.0-47.0); Hemoglobin 14.9 g/dl (12.0-16.0); Immature Granulocytes # (auto) 0.03 K/uL (0.01-0.20); Immature Granulocytes % (auto) 0.4 %; Lymphocytes # (auto) 1.65 K/uL (1.20-3.40); Lymphocytes % (auto) 23.7 %; Mean Corpuscular Hemoglobin 32.7 pg (25.0-34.0); Mean Corpuscular Hgb Conc 36.1 g/dL (32.0-36.0); Mean Corpuscular Volume 90.6 fL (80.0-100.0); Monocytes # (auto) 0.62 K/uL (0.11-0.59); Monocytes % (auto) 8.9 %; Neutrophils % (auto) 64.8 %; Platelet Count 185 K/uL (130-400); RDW Coefficient of Variation 11.7 % (11.5-14.5); RDW Standard Deviation 38.6 fL (36.4-46.3); Red Blood Count 4.56 M/uL (4.20-5.40); White Blood Count 6.95 K/ul (4.8-10.8)
[2024-08-30 07:36] LABS: BUN Creatinine Ratio 23.1 (10-20); Creatinine Clr Calc Pharmacy 53.4 ml/min; Potassium 3.6 mmol/L (3.5-5.1)
[2024-08-30] MEDS ORDERED: STROKE PATIENT DISCHARGE STA (12:02)
--- NOTE | 2024-08-30 12:03 | Discharge Summary ---
Date of Service August 30, 2024 Admission HPI Per Admitting Provider 73-year-old female presenting from outpatient office for difficulties with speech x 1 week. ED course: CBC WNL, PT/INR WNL, CMP grossly WNL with exception of chloride 108, BUN 24, BUN/creatinine ratio 22.4; pending troponin; CT head without acute intracranial hemorrhage or mass effect, 1.6 x 0.8 centimeters hypodense focus within the superior right cerebellar hemisphere new since previous admission, suggestive of subacute to acute infarct, 7 mm hypodense focus in the left midbrain, likely artifactual although small effects appear similar, white matter hypodense foci suggestive of small vessel disease; head CT A no large vessel occlusion, no intracranial aneurysm; neck CTA moderate atherosclerotic plaque within the proximal bilateral internal carotid arteries without significant stenosis, no stenosis or dissection within the bilateral common carotid, cervical intracranial, or vertebral arteries; EKG appearing sinus bradycardia rate under 60 bpm, QTc 399. Patient 73-year-old female with PMHx Alzheimer's, HTN, and hypercholesterolemia presenting for slurred speech since the Friday [employer]. Patient's son is present in room at time of visit and helps her provide history. 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 3 days [employer] the patient continued to have slurring of speech but only with certain words, and seem to be having slight difficulty finding words. 1 day [employer] slurred speech continued at the same severity, only presenting with certain words, and seem to worsened later in the night. Patient son is unsure if the slurring of speech is not partially impacted by the patient not wearing her hearing aids. Patient states that she does not feel that her words are not slurred but things feel "different" although the patient is unable to further explain what she means by this. The patient's son states that she appears to be at baseline neurologically. Appears as though she has some confusion in regards to having to think about where she is going or take a little bit of time to think of what she is going to say. This has been ongoing times weeks. Not having sore throat, nasal congestion, or other URI symptoms. She is denying any other additional symptoms to include weakness, numbness/tingling, headache, or vision changes. Denies chest pain, shortness of breath, abdominal pain, N/V/D/C, paresthesias, or LUTS. Believes she took most of her a.m. medications, but is not sure. Please see Dr. Wiggins's attestation for adjustments/additions to treatment plan. Admission Exam Per Admitting Provider General: No acute distress Skin: Warm and dry Head: Normocephalic, atraumatic Eyes: PERRL, conjunctivae clear, sclera non-icteric; EOM intact ENT: External ear and ear canal without swelling; nose atraumatic; good dentition, tongue normal appearance, pharynx normal without tonsillar swelling or exudate; voice quality almost sounding as if obstructed, but throat w/o edema and nose w/o obstruction Neck: Supple, no LAD Cardio: Bradycardic, regular rhythm, no M/G/R, S1 and S2 normal Resp: No respiratory distress, Lungs CTA in all lobes bilaterally, no wheezes, rales, or rhonchi Abdomen: Soft, symmetric, nontender; No masses or hepatosplenomegaly; Bowel sounds normoactive MSK: No deformities, full ROM throughout; pulses palpable and equal; no edema. Neuro: Awake, alert - States year "2013", president is "not Lopes, that other one," then states "trump", able to recall birthday and last name - At baseline per son II- PERRL, no VF deficits III, IV, - EOMs intact, no deviation, no nystagmus V- Normal sensation in all locations VII- No asymmetry, no nasolabial fold flattening VIII- Normal hearing to speech at patient's baseline (not wearing hearing aids) IX, X- Normal palatal elevation, no ulnar deviation XI- 5/5 head turn + shoulder shrug bilaterally XII- Midline tongue protrusion Motor: 4/5 strength throughout BUE/BLE Sensory: Normal sensation throughout, no hemineglect, Romberg absent Coordination: Normal [id number], no tremor Gait: Unable to asses; no complaints Psych: Appropriate mood and affect; good judgement and insight. Patient's son is present in room at time of visit Principal Diagnosis Acute right medial cerebellar stroke Discharge Exam General: Awake, conversant Heart: S1, S2/regular rate and rhythm, no murmur rubs or gallops Lungs: Clear to auscultation bilaterally. Normal effort Abdomen: Soft/nontender/nondistended. No hepatosplenomegaly Extremities: No clubbing/cyanosis. No edema Behavior: Appropriate, cooperative Discharge Data Allergies Allergy/AdvReac Type Severity Reaction Status Date / Time No Known Allergies Allergy Verified 06/09/24 10:55 Consultations 08/27/24 12:35 ED Decision to Admit Stat 08/27/24 14:46 Consult Neurology Routine Ordered Studies Head CT 08/27/24 11:13 CT OF THE HEAD WITHOUT CONTRAST CLINICAL HISTORY: neuro deficit, acute stroke suspected. Slurred speech. COMPARISON STUDY: MRI of the brain April 28, 2019. TECHNIQUE: Helical axial images of the head were obtained without IV contrast. Automated exposure control was utilized for the study. A dose lowering technique was utilized adhering to the principles of ALARA. FINDINGS: No acute intracranial hemorrhage, midline shift or mass effect is present. The ventricular system is unremarkable. Basal cisterns are patent. There are no extra axial collections. A 1.6 x 0.8 cm hypodense focus within the superior right cerebellar hemisphere on image 10 of 28 is new since MRI of April 28, 2019. White matter hypodense foci suggest small vessel disease. There is a 7 mm hypointense focus within the left midbrain on image 10. IMPRESSION: 1. No acute intracranial hemorrhage. No mass effect. 2. 1.6 x 0.8 cm hypodense focus within the superior right cerebellar hemisphere which is new since previous MRI. This suggests a subacute to acute infarct. 3. 7 mm hypodense focus within the left midbrain. This is likely artifactual although a small infarct could appear similar. 4. White matter hypodense foci suggestive of small vessel disease. ACT 112: Negative or not required by law. Electronically signed by: Pepito Fox M.D. 08/27/2024 11:57 AM Head CTA 08/27/24 11:13 CTA ANGIOGRAPHY OF THE HEAD CLINICAL HISTORY: neuro deficit, acute stroke suspected COMPARISON STUDY: MRI of the brain April 28, 2019. TECHNIQUE: Helical axial images of the head were obtained following uneventful intravenous administration of 121 cc of Optiray. Sagittal and coronal reconstructions were viewed as well as maximal intensity projections on an independent 3-D workstation. Automated exposure control was utilized for the study. A dose lowering technique was utilized adhering to the principles of ALARA. FINDINGS: The bilateral M1, M2, A1 and A2 segments are patent. No vascular occlusion is present. There is minimal plaque within the cavernous carotids without stenosis. The posterior circulation is intact. There is no intracranial aneurysm. Please note that the head CT will be reported separately. A small hypodense focus within the superior right cerebellar hemisphere is better depicted on that exam. IMPRESSION: No large vessel occlusion. No intracranial aneurysm. ACT 112: Negative or not required by law. Electronically signed by: Pepito Fox M.D. 08/27/2024 12:05 PM Neck CTA 08/27/24 11:13 CT ANGIOGRAPHY OF THE NECK WITH CONTRAST CLINICAL HISTORY: neuro deficit, acute stroke suspected COMPARISON STUDY: No previous studies for comparison. Technique: CT angiography of the carotid and vertebral arteries was obtained using Optiray and 3D reconstruction on an independent workstation. NASCET criteria was utilized. Automated exposure control was utilized for the study. A dose lowering technique was utilized adhering to the principles of ALARA. CT DOSE: 875.81 mGy.cm Findings: Visualized portions of the lung apices are unremarkable. There is no cervical adenopathy. No cervical spine fracture. There is moderate calcified atherosclerotic plaque within the proximal bilateral internal carotid arteries without significant stenosis. There is no aneurysm or dissection within the neck. The vertebral arteries are patent. IMPRESSION: 1. Moderate atherosclerotic plaque within the proximal bilateral internal carotid arteries without significant stenosis. 2. No stenosis or dissection within the bilateral common carotid, cervical internal carotid or vertebral arteries. ACT 112: Negative or not required by law. Electronically signed by: Pepito Fox M.D. 08/27/2024 12:01 PM Brain MRI 08/27/24 13:25 EXAM: MR brain wo con CLINICAL HISTORY: TIA (transient ischemic attack) Presenting w/ dysarthria and difficulty finding words x 3-4 days, seems to worsen at night but also ? more pronounced when patient does not have hearing aids in; No neurological deficits on exam- mild dysarthria and prolonged time finding words but at baseline per son w/ exception of slurred speech - CT head- 1.6 x 0.8 centimeters hypodense focus within the superior right cerebellar hemisphere new since previous MRI (02/14/2020), suggestive of subacute to acute infarct, 7 mm hypodense focus in the left midbrain, likely artifactual although small infarcts appear similar - CTA head/neck without large vessel occlusion or intracranial aneurysm, moderate atherosclerotic plaque within the proximal bilateral internal carotid arteries without significant stenosis TECHNIQUE: MRI of the brain was performed without contrast with multiplanar sequences obtained. COMPARISON: No previous studies are available for comparison. FINDINGS: Brain Parenchyma: There is evidence of extensive bilateral periventricular and subcortical T2/FLAIR hyperintensities in cereberal hemisoheres and in the right cerebellum and mid brain likely signifying extensive microvascular angiopathic changes. There are foci of restricted diffusion in the right medial cerebellar hemisphere extending in superior cerebellar peduncle signifying acute lacunar infarcts. No evidence of intracranial hemorrhage. Ventricles and Sulci: Prominent intra and extra-ventricular CSF spaces are noted with prominent VR spaces signifying involutionary changes in the brain. No evidence of hydrocephalus or ventriculomegaly. Cranial Nerves: Normal course and appearance of cranial nerves identified. Orbits and Skull Base: Orbits and skull base structures are normal without evidence of abnormalities. IMPRESSION: 1. Features are in keeping with senile involutionary changes with advanced microvascular angiopathic changes and acute lacunar infarcts in the right medial cerebellum extending into the superior cerebellar peduncle. 2. No intracranial bleed is seen. Electronically signed by Jack Braswell 08-27-2024 3:27 PM 08/27/24 11:13 CT angio head w con Stat CT angio neck with con Stat CT head/brain wo con Stat 08/27/24 13:25 MRI Brain [MR brain wo con] Urgent Hospital Course (1) Cerebellar stroke: Patient presented with dysarthria CT head and MRI suggestive of cerebellar stroke CTA head and neck negative - 2D Echo Bubble negative - A1c 4.9 -Lipid panel reviewed. Simvastatin changed to atorvastatin - Troponin 6.1; no chest pain - EKG sinus bradycardia rate around 55 bpm - DAPT started - ASA + Plavix started 08/27, continue for 3 weeks, then switch to aspirin only Neurology on board. Follow-up with neurology in 2 to 3 weeks. Blood pressure was elevated. Added Norvasc 10 mg on top of losartan (2) Mixed Alzheimer's and vascular dementia: Mental status harris, patient is at baseline per son; Follows with Dr. Resendiz, most recent visit 06/09/24 - Donepezil 5 mg daily Plan HTN- Losartan 100mg. Added Norvasc Mood- Venlafaxine 150mg PT/OT cleared the patient for discharge to home with home health services. I personally spoke to the daughter to update her about the discharge plan Total Time Total Time Spent Total Time Spent (In Minutes): 35 Discharge Plan Discharge Items Patient Disposition: Home - Home Health Services Reason For Visit: DYSARTHRIA, TIA WORKUP Discharge Diagnosis: Acute right medial cerebellar stroke Activity: Resume your previous activity Non-emergency contact: Primary Care Provider Call non-emergency contact if: you have any medication questions and your symptoms worsen Follow-up/Referrals: Gerard Resendiz MD [Physician] - (PLEASE CALL DR RESENDIZ'S OFFICE TO SCHEDULE A FOLLOW-UP DISCHARGE APPOINTMENT) Saba Garcia MD [Primary Care Provider] - (PLEASE CALL YOUR PRIMARY CARE PROVIDER TO SCHEDULE A HOSPITAL DISCHARGE FOLLOW-UP APPOINTMENT WITHIN 7-10 DAYS) Diet: Heart Healthy Addtl Attending Provider Instructions: Advised to follow-up with neurology in 2 to 3 weeks Advised to follow-up with PCP in 1 week Advised to continue aspirin and Plavix for 3 weeks, followed by aspirin only indefinitely. Stop Plavix after 3 weeks Pending Studies at Discharge: No Stand-Alone Forms: My [facility] [employer], Smoking Cessation, Medications to Prevent Stroke Medications and DC Order Prescriptions: New clopidogrel 75 mg Tablet 75 mg PO QAM 19 Days Qty: 19 0RF amlodipine [Norvasc] 5 mg Tablet 10 mg PO QAM 30 Days Qty: 60 0RF atorvastatin 40 mg Tablet 40 mg PO QAM 30 Days Qty: 30 0RF aspirin 81 mg Tablet,Delayed Release (Dr/Ec) 81 mg PO DAILY 30 Days Qty: 30 0RF Continued losartan 100 mg tablet 100 mg PO DAILY venlafaxine 150 mg tablet extended release 24hr 150 mg PO DAILY donepezil 5 mg Tablet 5 mg PO DAILY diclofenac sodium 1 % Gel 2 g TOPICAL QID PRN (Reason: Pain) Rx Instructions: apply to single elbow, wrist or hand; for hand includes palm/fingers/back of hand Discontinued simvastatin 20 mg tablet 20 mg PO QPM Discharge Orders: Discharge Order (Routine); Ordered 08/30/24 Ordered By: Christina Fisher Admission Data Admit Date/Time: 08/27/24 13:24 Attending Provider: Christina Fisher Admit Provider: J Carlos Wiggins Primary Care Provider: Saba Garcia Other Providers: J Carlos Wiggins; Gerard Resendiz; Charli Allan; Kaity Trevino; Erin Zamudio; Akiko Siddiqui; Elio Cook; Slava Cota [facility] Other Interventions: Discharge Summary Assessment (RN) Last Done: 08/30/24 13:23
[2024-08-30 12:20] VITALS: PULSE 73; TEMP 97.3; O2SAT 97
[2024-08-30 13:05] VITALS: BP 134/76
== END 2024-08-30 14:03 | disposition home health service (06) | DRG 66 ==
LOC: ED 10:35 → 2N 13:24 → SUATTDRO 13:24 → 2N 14:22